=== PATIENT | male | born 1950 | race Caucasian/White ===

== ENCOUNTER 2019-10-09 06:34 | Outpatient (CLI) | payer MEDICARE, SELFPAY ==
[2019-10-09 07:56] LABS: Add Urine Microscopic? YES; Appearance Urine Clear (Clear); Bacteria Urine Trace /hpf; Bilirubin Urine Negative (Negative); Blood Urine 1+ (Negative); Color Urine Yellow (Yellow); Glucose Urine UA Negative (Negative); Ketones Urine Negative (Negative); Leukocyte Esterase Ur Trace LEU/UL (NEGATIVE); Mucus Urine Rare /lpf; Nitrate Urine Negative (Negative); Protein Urine Negative (Negative); RBC Urine 0-2 /hpf (0-2); Specific Grav Ur 1.017 (1.001-1.035); Urobilinogen Urine Negative mg/dL (<2.0)
[2019-10-09 08:06] LABS: Alanine Aminotransferase 15 U/L (4-50); Albumin Level 4.2 g/dL (3.5-5.1); Alkaline Phosphatase 133 U/L (38-126); Aspartate Amino Transferase 21 U/L (17-59); Bilirubin,Total 0.8 mg/dL (0.2-1.3); Blood Urea Nitrogen 15 mg/dL (9-20); Calcium 8.8 mg/dL (8.4-10.2); Carbon Dioxide 26 mmol/L (22-30); Chloride 105 mmol/L (98-107); Cholesterol 142 mg/dL (0-200); Estimated Glomerular Filt Rate > 60; Glucose 112 mg/dL (75-110); HDL Direct 32 mg/dL; Potassium 4.8 mmol/L (3.4-5.0); Sodium 138 mmol/L (137-145); Triglycerides 98 mg/dL (<150)
[2019-10-09 08:13] LABS: CRP < 0.5 mg/dL (<1.0)
[2019-10-09 08:17] LABS: LDL Cholesterol Direct 94 mg/dL
[2019-10-09 08:35] LABS: Prostate Specific Antigen 0.7 ng/mL (< OR = 4.0)
[2019-10-09 09:04] LABS: Erythrocyte Sedimentation Rate 13 mm/hr (0-20)
[2019-10-09 15:55] LABS: Vitamin D 25 Hydroxy 52.2 ng/mL
== END 2019-10-09 06:35 | disposition home or self-care (01) ==
PROVIDERS: PCP Family Medicine; Visit Provider Physician Assistant
DX: E78.00 Pure hypercholesterolemia, unspecified (principal); I10 Essential (primary) hypertension; I25.10 Atherosclerotic heart disease of native coronary artery without angina pectoris; R97.20 Elevated prostate specific antigen [PSA]; M05.79 Rheumatoid arthritis with rheumatoid factor of multiple sites without organ or systems involvement; E55.9 Vitamin D deficiency, unspecified
CPT/HCPCS: 36415; 80053; 80061; 81001; 82306; 84153; 85652; 86140

== ENCOUNTER 2020-04-06 13:40 | Outpatient (CLI) | payer MEDICARE, SELFPAY ==
[2020-04-06 15:02] LABS: Basophils Percent Auto 0.6 % (0.2-1.2); Eosinophils Absolute Auto 0.2 K/mm3 (0-0.3); Eosinophils Percent Auto 4.2 % (0-4.4); Hematocrit 37.2 % (42.0-52.0); Hemoglobin 11.6 g/dL (14.0-18.0); Immature Granulocyte Absolute 0.02 K/mm3 (0.00-0.031); Immature Granulocyte Percent A 0.4 % (0-0.5); Lymphocytes Absolute Auto 1.54 K/mm3 (0.9-3.2); Lymphocytes Percent Auto 29.4 % (18.3-44.2); Mean Corpuscular HGB Conc 31.2 g/dl (32-36); Mean Platelet Volume 9.4 fl (7.4-10.4); Monocytes Absolute Auto 0.4 K/mm3 (0.1-0.6); Monocytes Percent Auto 7.1 % (2.6-8.5); Neutrophils Absolute Auto 3.1 K/mm3 (1.3-6.7); Neutrophils Percent Auto 58.3 % (45.5-73.1); Platelet Count Result 308 k/mm3 (150-375); Red Cell Distribution Width 17.8 % (11.5-14.5); White Blood Count 5.2 K/mm3 (4.5-10.0)
[2020-04-06 15:12] LABS: Alanine Aminotransferase 17 U/L (4-50); Albumin Level 3.7 g/dL (3.5-5.1); Alkaline Phosphatase 123 U/L (38-126); Anion Gap 4 mmol/L (8-16); Aspartate Amino Transferase 25 U/L (17-59); Bilirubin,Total 0.7 mg/dL (0.2-1.3); Blood Urea Nitrogen 13 mg/dL (9-20); Calcium 8.5 mg/dL (8.4-10.2); Carbon Dioxide 29 mmol/L (22-30); Chloride 103 mmol/L (98-107); Estimated Glomerular Filt Rate > 60; Glucose 94 mg/dL (75-110); Potassium 4.5 mmol/L (3.4-5.0); Sodium 136 mmol/L (137-145)
[2020-04-06 16:46] LABS: Add Urine Microscopic? NO; Appearance Urine Clear (Clear); Bilirubin Urine Negative (Negative); Blood Urine Negative (Negative); Color Urine Yellow (Yellow); Glucose Urine UA Negative (Negative); Ketones Urine Negative (Negative); Leukocyte Esterase Ur Negative LEU/UL (NEGATIVE); Nitrate Urine Negative (Negative); Protein Urine Negative (Negative); Specific Grav Ur 1.019 (1.001-1.035); Urobilinogen Urine Negative mg/dL (<2.0)
== END 2020-04-06 13:41 | disposition home or self-care (01) ==
LOC: ANHLAB 13:51
PROVIDERS: PCP Family Medicine
DX: M05.79 Rheumatoid arthritis with rheumatoid factor of multiple sites without organ or systems involvement (principal); Z79.899 Other long term (current) drug therapy; Z68.32 Body mass index [BMI] 32.0-32.9, adult
CPT/HCPCS: 36415; 80053; 81003; 85025; 87086

== ENCOUNTER 2020-04-21 09:14 | Outpatient (CLI) | payer MEDICARE, SELFPAY ==
[2020-04-21 09:45] LABS: Cholesterol 154 mg/dL (0-200); HDL Direct 34 mg/dL; Triglycerides 103 mg/dL (<150)
[2020-04-21 09:56] LABS: LDL Cholesterol Direct 103 mg/dL
== END 2020-04-21 09:15 | disposition home or self-care (01) ==
PROVIDERS: PCP Family Medicine; Visit Provider Internal Medicine Cardiovascular Disease
DX: E78.2 Mixed hyperlipidemia (principal)
CPT/HCPCS: 36415; 80061

== ENCOUNTER 2020-05-07 06:42 | Outpatient (CLI) | payer MEDICARE, SELFPAY ==
[2020-05-07 07:33] LABS: Basophils Absolute Auto 0.1 K/mm3 (0.0-0.1); Eosinophils Absolute Auto 0.2 K/mm3 (0-0.3); Eosinophils Percent Auto 3.3 % (0-4.4); Hematocrit 34.8 % (42.0-52.0); Hemoglobin 11.2 g/dL (14.0-18.0); Immature Granulocyte Absolute 0.02 K/mm3 (0.00-0.031); Immature Granulocyte Percent A 0.3 % (0-0.5); Lymphocytes Absolute Auto 1.59 K/mm3 (0.9-3.2); Lymphocytes Percent Auto 25.9 % (18.3-44.2); Mean Corpuscular HGB Conc 32.2 g/dl (32-36); Mean Corpuscular Hemoglobin 29.3 pg (26-34); Mean Corpuscular Volume 91.1 fl (80-100); Mean Platelet Volume 9.4 fl (7.4-10.4); Monocytes Absolute Auto 0.7 K/mm3 (0.1-0.6); Monocytes Percent Auto 11.5 % (2.6-8.5); Neutrophils Absolute Auto 3.6 K/mm3 (1.3-6.7); Platelet Count Result 270 k/mm3 (150-375); Red Blood Count 3.82 M/mm3 (4.6-6.20); Red Cell Distribution Width 17.2 % (11.5-14.5); White Blood Count 6.2 K/mm3 (4.5-10.0)
[2020-05-07 08:07] LABS: Iron 35 ug/dL (49-181)
[2020-05-07 08:17] LABS: Percent Iron Saturation 9 % (20-50)
== END 2020-05-07 06:43 | disposition home or self-care (01) ==
PROVIDERS: PCP Family Medicine; Visit Provider Family Medicine
DX: D64.9 Anemia, unspecified (principal); M05.9 Rheumatoid arthritis with rheumatoid factor, unspecified; G89.29 Other chronic pain; M25.552 Pain in left hip
CPT/HCPCS: 36415; 82728; 83540; 83550; 85025

== ENCOUNTER 2020-06-18 13:42 | Outpatient (CLI) | payer MEDICARE, SELFPAY ==
[2020-06-18 14:11] LABS: Hematocrit 40.2 % (42.0-52.0); Hemoglobin 13.3 g/dL (14.0-18.0); Mean Corpuscular HGB Conc 33.1 g/dl (32-36); Mean Corpuscular Hemoglobin 31.2 pg (26-34); Mean Corpuscular Volume 94.4 fl (80-100); Mean Platelet Volume 9.2 fl (7.4-10.4); Platelet Count Result 233 k/mm3 (150-375); Red Blood Count 4.26 M/mm3 (4.6-6.20); Red Cell Distribution Width 16.9 % (11.5-14.5); White Blood Count 7.2 K/mm3 (4.5-10.0)
[2020-06-18 14:40] LABS: Iron 86 ug/dL (49-181)
[2020-06-18 14:50] LABS: Percent Iron Saturation 29 % (20-50)
== END 2020-06-18 13:43 | disposition home or self-care (01) ==
PROVIDERS: PCP Family Medicine; Visit Provider Family Medicine
DX: D64.9 Anemia, unspecified (principal)
CPT/HCPCS: 36415; 82728; 83540; 83550; 85027

== ENCOUNTER → 2020-08-01 01:28 | Outpatient (CLI) | payer MEDICARE, SELFPAY ==
[2020-08-02 14:53] LABS: SARS-CoV-2 RNA PCR Negative
== END ==
PROVIDERS: PCP Family Medicine; Visit Provider Internal Medicine Gastroenterology
DX: Z01.812 Encounter for preprocedural laboratory examination (principal); Z20.822 Contact with and (suspected) exposure to COVID-19
CPT/HCPCS: C9803; U0003; U0005

== ENCOUNTER 2020-08-05 01:12 | Day surgery (SDC) | payer MEDICARE, SELFPAY ==
[2020-08-05 06:18] VITALS: BP 143/69; PULSE 63; RESP 20; TEMP 36.3; O2SAT 95; BMI 29.5
[2020-08-05] MEDS: LACTATED RINGERS 1,000 ML 150 ML IV CONT (06:31)
[2020-08-05] MEDS: AMPICILLIN 2 GM/NS 100 ML 2 GM/100 ML BAG IVPB (06:32)
--- NOTE | 2020-08-05 06:58 | WPDANESEPPF ---
Anes - Initial Pre Proc Eval Procedure: Operation Date: 08/05/20 07:30 Proposed Procedures p Colonoscopy - Veto Davis MD Date/Time: 08/05/20 06:58 Surgeon: Veto Davis MD Pre Op Diagnosis: positive cologuard Patient Data Age: 70 Gender: M Height: 1.78 m Weight: 93.4 kg Last Vital Signs Temp 36.3 C L 08/05/20 06:18 Pulse 63 08/05/20 06:18 Resp 20 08/05/20 06:18 BP 143/69 H 08/05/20 06:18 Pulse Ox 95 08/05/20 06:18 Allergies Allergy/AdvReac Type Severity Reaction Status Date / Time No Known Allergies Allergy Verified 08/05/20 06:16 Home Medications Medication Instructions Recorded Confirmed Type atorvastatin 80 mg tablet 80 mg PO DAILY 03/14/19 07/27/20 History carvedilol 12.5 mg tablet 12.5 mg PO Q12H 03/14/19 07/27/20 History folic acid 1 mg tablet 1 mg PO DAILY 03/14/19 07/27/20 History lisinopril 2.5 mg tablet 2.5 mg PO DAILY 03/14/19 07/27/20 History methotrexate sodium 2.5 mg tablet 25 mg PO WEEKLY 03/14/19 07/27/20 History fluticasone furoate 100 1 inhalation INHALATION DAILY #60 05/22/19 07/27/20 Rx mcg-vilanterol 25 mcg/dose each inhalation powder umeclidinium 62.5 mcg/actuation 1 inhalation INHALATION DAILY #30 05/22/19 07/27/20 Rx blister powder for inhalation each aspirin 81 mg tablet,delayed 81 mg PO DAILY 09/19/19 07/27/20 History release ferrous sulfate 325 mg (65 mg 325 mg PO BID #60 tablet 05/07/20 07/27/20 Rx iron) tablet ezetimibe 10 mg tablet 10 mg PO DAILY tablet 06/15/20 07/27/20 History tamsulosin 0.4 mg capsule 0.4 mg PO DAILY #90 cap 06/18/20 07/27/20 Rx omeprazole 40 mg capsule,delayed 40 mg PO DAILY #90 cap 06/25/20 07/27/20 Rx release clopidogrel 75 mg PO DAILY 07/27/20 07/27/20 History gabapentin 300 mg PO TID 07/27/20 07/27/20 History sod picosulf 10 mg-magnes 3.5 160 ml PO BID #160 ml 08/04/20 Rx gram-citric 12 gram/160 mL oral solution Patient hx anesthesia problems: none Family hx anesthesia problems: none PMFSH Past Medical History Medical History (Updated 08/04/20 @ 12:48 by Jose Manuel Chahal DO) CAD (coronary artery disease) COPD (chronic obstructive pulmonary disease) HTN (hypertension) Hypertension with heart disease [place] (myocardial infarction) Pure hypercholesterolemia Rheumatoid arthritis with positive rheumatoid factor Surgical History Surgical History (Updated 08/04/20 @ 12:48 by Jose Manuel Chahal DO) H/O cardiac catheterization History of hip replacement Hx of CABG x2, 2017 Social History Social History (Updated 06/18/20 @ 08:48 by Donna Ramirez MA) Smoking packs per day: 2.5 Smoking cigarettes per day: 50.0 Years smoked: 53 Smoking pack-years: 132.50 Smoking status: Former smoker Tobacco type: cigarettes Second hand tobacco smoke exposure: Yes Smoking end date: 10/27/18 Alcohol intake: current Drinks per week: 10 Substance use: never Substance use type: does not use Gender identity (if verbalized by the patient): Male Anes - Eval Final PreProcedure Day of Procedure 08/05/20 06:58 Patient weight: overweight Heart: regular rate and rhythm Lungs: clear to auscultation and normal air movement Airway: Mallampati scale class II Neurological: alert and oriented Last oral intake: >/= 8 hours ASA classification: III Emergent: no Anesthetic plan: proceed Anesthesia type and monitoring: general GIVS and standard monitoring Informed Consent: The patient's anesthetic plan and its attendant risks and benefits were discussed with the patient/family/POA. Questions were solicited and answers provided to the satisfaction of the patient/family/POA.
--- NOTE | 2020-08-05 08:01 | WPDGICN ---
Assessment and Plan Assessment and plan (1) Positive colorectal cancer screening using Cologuard test: Code(s): R19.5 - Other fecal abnormalities Status: Acute Assessment and Plan: Patient with recent positive screening cologuard test. Plan is for colonoscopy. Follow-up will be based on findings. (2) CAD (coronary artery disease): Code(s): I25.10 - Atherosclerotic heart disease of [place] coronary artery without angina pectoris Status: Acute GI Consult Note Consult date/time: 08/05/20 08:01 HPI: Nba Hyde is a 70 year old male Presents for evaluation of positive screening cologuard test. patient states that his weight appetite bowel movements are normal. He denies abdominal pain. He has had no bleeding. Colonoscopy will be performed. Patient's last colonoscopy was in 2010. [place] to be unremarkable. Has a history of a gastric ulcer in 2013. Family history noncontributory. Patient reports history of atherosclerotic heart disease. He has congestive heart failure that is stable. History of hip replacement. And rheumatoid arthritis. [facility] Past Medical History Medical History (Updated 08/05/20 @ 08:04 by Veto Davis MD) CAD (coronary artery disease) COPD (chronic obstructive pulmonary disease) HTN (hypertension) Hypertension with heart disease [place] (myocardial infarction) Pure hypercholesterolemia Rheumatoid arthritis with positive rheumatoid factor Surgical History Surgical History (Updated 08/04/20 @ 12:48 by Jose Manuel Chahal DO) H/O cardiac catheterization History of hip replacement Hx of CABG x2, 2017 Social History Social History (Updated 06/18/20 @ 08:48 by Donna Ramirez MA) Smoking packs per day: 2.5 Smoking cigarettes per day: 50.0 Years smoked: 53 Smoking pack-years: 132.50 Smoking status: Former smoker Tobacco type: cigarettes Second hand tobacco smoke exposure: Yes Smoking end date: 10/27/18 Alcohol intake: current Drinks per week: 10 Substance use: never Substance use type: does not use Gender identity (if verbalized by the patient): Male Meds Home Medications and Allergies Home Medications Medication Instructions Recorded Confirmed Type atorvastatin 80 mg tablet 80 mg PO DAILY 03/14/19 07/27/20 History carvedilol 12.5 mg tablet 12.5 mg PO Q12H 03/14/19 07/27/20 History folic acid 1 mg tablet 1 mg PO DAILY 03/14/19 07/27/20 History lisinopril 2.5 mg tablet 2.5 mg PO DAILY 03/14/19 07/27/20 History methotrexate sodium 2.5 mg tablet 25 mg PO WEEKLY 03/14/19 07/27/20 History fluticasone furoate 100 1 inhalation INHALATION DAILY #60 05/22/19 07/27/20 Rx mcg-vilanterol 25 mcg/dose each inhalation powder umeclidinium 62.5 mcg/actuation 1 inhalation INHALATION DAILY #30 05/22/19 07/27/20 Rx blister powder for inhalation each aspirin 81 mg tablet,delayed 81 mg PO DAILY 09/19/19 07/27/20 History release ferrous sulfate 325 mg (65 mg 325 mg PO BID #60 tablet 05/07/20 07/27/20 Rx iron) tablet ezetimibe 10 mg tablet 10 mg PO DAILY tablet 06/15/20 07/27/20 History tamsulosin 0.4 mg capsule 0.4 mg PO DAILY #90 cap 06/18/20 07/27/20 Rx omeprazole 40 mg capsule,delayed 40 mg PO DAILY #90 cap 06/25/20 07/27/20 Rx release clopidogrel 75 mg PO DAILY 07/27/20 07/27/20 History gabapentin 300 mg PO TID 07/27/20 07/27/20 History sod picosulf 10 mg-magnes 3.5 160 ml PO BID #160 ml 08/04/20 Rx gram-citric 12 gram/160 mL oral solution Allergies Allergy/AdvReac Type Severity Reaction Status Date / Time No Known Allergies Allergy Verified 08/05/20 06:16 Vital Signs Vital Signs - 24 hr 08/05/20 06:18 Temperature 97.3 F L Pulse Rate 63 Respiratory Rate 20 Blood Pressure 143/69 H Pulse Oximetry 95 Exam Narrative: Exam Narrative: Physical exam reveals patient to be alert. Vital signs stable. HEENT exam is unremarkable. Lungs are clear to auscultation and percussion. Hea
[2020-08-05 08:02] VITALS: BP 117/74; PULSE 54; RESP 12; O2SAT 97
[2020-08-05 08:12] VITALS: BP 132/77; PULSE 54; RESP 12; O2SAT 94
[2020-08-05 08:22] VITALS: BP 157/81; PULSE 55; RESP 20; O2SAT 98
== END 2020-08-05 08:39 | disposition home or self-care (01) ==
PROVIDERS: PCP Family Medicine; Visit Provider Internal Medicine Gastroenterology
PROC: 0DJD8ZZ Inspection of Lower Intestinal Tract, Via Natural or Artificial Opening Endoscopic (ICD-10-PCS; CPT 45378; principal; 2020-08-05 07:30)
DX: R19.5 Other fecal abnormalities (principal); D12.5 Benign neoplasm of sigmoid colon; K63.5 Polyp of colon; K62.1 Rectal polyp; K64.8 Other hemorrhoids; I25.10 Atherosclerotic heart disease of native coronary artery without angina pectoris; I11.0 Hypertensive heart disease with heart failure; I50.9 Heart failure, unspecified; M06.9 Rheumatoid arthritis, unspecified; J44.9 Chronic obstructive pulmonary disease, unspecified; I25.2 Old myocardial infarction; E78.00 Pure hypercholesterolemia, unspecified; Z87.11 Personal history of peptic ulcer disease; Z95.1 Presence of aortocoronary bypass graft; Z87.891 Personal history of nicotine dependence; Z79.82 Long term (current) use of aspirin; Z79.02 Long term (current) use of antithrombotics/antiplatelets
CPT/HCPCS: 45385; 88305; J0290; J2704; J7120

== ENCOUNTER 2020-08-10 14:46 | Outpatient (RCR) | payer MEDICARE, SELFPAY ==
[2020-08-10 16:04] LABS: Basophils Percent Auto 0.5 % (0.2-1.2); Eosinophils Absolute Auto 0.2 K/mm3 (0-0.3); Eosinophils Percent Auto 3.5 % (0-4.4); Hematocrit 40.1 % (42.0-52.0); Hemoglobin 13.4 g/dL (14.0-18.0); Immature Granulocyte Absolute 0.02 K/mm3 (0.00-0.031); Immature Granulocyte Percent A 0.3 % (0-0.5); Lymphocytes Absolute Auto 1.96 K/mm3 (0.9-3.2); Lymphocytes Percent Auto 30.2 % (18.3-44.2); Mean Corpuscular HGB Conc 33.4 g/dl (32-36); Mean Corpuscular Hemoglobin 32.1 pg (26-34); Mean Corpuscular Volume 95.9 fl (80-100); Mean Platelet Volume 9.5 fl (7.4-10.4); Monocytes Absolute Auto 0.6 K/mm3 (0.1-0.6); Monocytes Percent Auto 8.8 % (2.6-8.5); Neutrophils Absolute Auto 3.7 K/mm3 (1.3-6.7); Neutrophils Percent Auto 56.7 % (45.5-73.1); Platelet Count Result 199 k/mm3 (150-375); Red Blood Count 4.18 M/mm3 (4.6-6.20); Red Cell Distribution Width 17.1 % (11.5-14.5); White Blood Count 6.5 K/mm3 (4.5-10.0)
[2020-08-10 16:07] LABS: Add Urine Microscopic? YES; Appearance Urine Clear (Clear); Bilirubin Urine Negative (Negative); Blood Urine 1+ (Negative); Color Urine Straw (Yellow); Glucose Urine UA Negative (Negative); Ketones Urine Negative (Negative); Leukocyte Esterase Ur Negative LEU/UL (Negative); Mucus Urine Rare /lpf; Nitrate Urine Negative (Negative); Protein Urine Negative (Negative); Urobilinogen Urine Negative mg/dL (<2.0); WBC Urine 0-3 /hpf
[2020-08-10 16:15] LABS: Alanine Aminotransferase 18 U/L (4-50); Albumin Level 3.9 g/dL (3.5-5.1); Alkaline Phosphatase 117 U/L (38-126); Anion Gap 4 mmol/L (8-16); Aspartate Amino Transferase 24 U/L (17-59); Bilirubin,Total 0.5 mg/dL (0.2-1.3); Blood Urea Nitrogen 15 mg/dL (9-20); Calcium 8.8 mg/dL (8.4-10.2); Carbon Dioxide 28 mmol/L (22-30); Chloride 105 mmol/L (98-107); Estimated Glomerular Filt Rate > 60; Glucose 88 mg/dL (75-110); Potassium 4.1 mmol/L (3.4-5.0); Sodium 137 mmol/L (137-145)
== END 2020-11-08 23:59 | disposition home or self-care (01) ==
LOC: ANHLAB 14:46
PROVIDERS: PCP Family Medicine
DX: Z51.81 Encounter for therapeutic drug level monitoring (principal); M05.79 Rheumatoid arthritis with rheumatoid factor of multiple sites without organ or systems involvement; Z79.899 Other long term (current) drug therapy
CPT/HCPCS: 36415; 80053; 81001; 85025

== ENCOUNTER → 2020-09-14 15:35 | Outpatient (REF) | payer MEDICARE, SELFPAY | LOC: ANHLAB 15:35 | PROVIDERS: PCP Family Medicine; Visit Provider Nurse Practitioner | DX: D03.39 Melanoma in situ of other parts of face (principal) | CPT/HCPCS: 88305; 88342 ==

== ENCOUNTER → 2020-10-12 14:54 | Outpatient (REF) | payer MEDICARE, SELFPAY | LOC: ANHLAB 14:54 | PROVIDERS: PCP Family Medicine; Visit Provider Surgery Plastic and Reconstructive Surgery | DX: D03.39 Melanoma in situ of other parts of face (principal) | CPT/HCPCS: 88305; 88342 ==

== ENCOUNTER 2020-12-24 11:43 | Outpatient (CLI) | payer MEDICARE, SELFPAY ==
[2020-12-24 12:20] LABS: Basophils Absolute Auto 0.1 K/mm3 (0.0-0.1); Basophils Percent Auto 0.7 % (0.2-1.2); Eosinophils Absolute Auto 0.2 K/mm3 (0-0.3); Eosinophils Percent Auto 2.8 % (0-4.4); Hematocrit 38.7 % (42.0-52.0); Hemoglobin 13.2 g/dL (14.0-18.0); Immature Granulocyte Absolute 0.02 K/mm3 (0.00-0.031); Immature Granulocyte Percent A 0.3 % (0-0.5); Lymphocytes Absolute Auto 1.83 K/mm3 (0.9-3.2); Lymphocytes Percent Auto 27.3 % (18.3-44.2); Mean Corpuscular HGB Conc 34.1 g/dl (32-36); Mean Corpuscular Hemoglobin 34.7 pg (26-34); Mean Corpuscular Volume 101.8 fl (80-100); Mean Platelet Volume 9.4 fl (7.4-10.4); Monocytes Absolute Auto 0.6 K/mm3 (0.1-0.6); Monocytes Percent Auto 8.6 % (2.6-8.5); Neutrophils Percent Auto 60.3 % (45.5-73.1); Platelet Count Result 192 k/mm3 (150-375); Red Cell Distribution Width 13.6 % (11.5-14.5); White Blood Count 6.7 K/mm3 (4.5-10.0)
[2020-12-24 12:29] LABS: Add Urine Microscopic? YES; Appearance Urine Clear (Clear); Bilirubin Urine Negative (Negative); Blood Urine 1+ (Negative); Color Urine Yellow (Yellow); Glucose Urine UA Negative (Negative); Ketones Urine Negative (Negative); Leukocyte Esterase Ur Trace LEU/UL (Negative); Mucus Urine Rare /lpf; Nitrate Urine Negative (Negative); Protein Urine Negative (Negative); RBC Urine 0-2 /hpf (0-2); Specific Grav Ur 1.015 (1.001-1.035); Urobilinogen Urine Negative mg/dL (<2.0); WBC Urine 0-3 /hpf
[2020-12-24 12:35] LABS: Alanine Aminotransferase 18 U/L (4-50); Alkaline Phosphatase 130 U/L (38-126); Anion Gap 8 mmol/L (8-16); Aspartate Amino Transferase 21 U/L (17-59); Bilirubin,Total 0.6 mg/dL (0.2-1.3); Blood Urea Nitrogen 14 mg/dL (9-20); Calcium 8.5 mg/dL (8.4-10.2); Carbon Dioxide 25 mmol/L (22-30); Chloride 105 mmol/L (98-107); Estimated Glomerular Filt Rate > 60; Glucose 98 mg/dL (65-110); Potassium 4.2 mmol/L (3.4-5.0); Sodium 138 mmol/L (137-145)
== END 2020-12-24 11:44 | disposition home or self-care (01) ==
LOC: ANHLAB 11:48
PROVIDERS: PCP Family Medicine; Visit Provider Internal Medicine
DX: C43.31 Malignant melanoma of nose (principal); Z51.81 Encounter for therapeutic drug level monitoring; Z79.899 Other long term (current) drug therapy; M05.79 Rheumatoid arthritis with rheumatoid factor of multiple sites without organ or systems involvement
CPT/HCPCS: 36415; 80053; 81001; 85025

== ENCOUNTER 2021-03-04 14:13 | Outpatient (CLI) | payer MEDICARE, SELFPAY ==
[2021-03-04 14:54] LABS: Basophils Percent Auto 0.6 % (0.2-1.2); Eosinophils Absolute Auto 0.3 K/mm3 (0-0.3); Eosinophils Percent Auto 3.9 % (0-4.4); Hematocrit 40.2 % (42.0-52.0); Hemoglobin 13.8 g/dL (14.0-18.0); Immature Granulocyte Absolute 0.02 K/mm3 (0.00-0.031); Immature Granulocyte Percent A 0.3 % (0-0.5); Lymphocytes Absolute Auto 1.73 K/mm3 (0.9-3.2); Lymphocytes Percent Auto 26.2 % (18.3-44.2); Mean Corpuscular HGB Conc 34.3 g/dl (32-36); Mean Corpuscular Hemoglobin 34.5 pg (26-34); Mean Corpuscular Volume 100.5 fl (80-100); Mean Platelet Volume 9.5 fl (7.4-10.4); Monocytes Absolute Auto 0.6 K/mm3 (0.1-0.6); Monocytes Percent Auto 9.2 % (2.6-8.5); Neutrophils Absolute Auto 3.9 K/mm3 (1.3-6.7); Neutrophils Percent Auto 59.8 % (45.5-73.1); Platelet Count Result 195 k/mm3 (150-375); White Blood Count 6.6 K/mm3 (4.5-10.0)
[2021-03-04 15:22] LABS: Alanine Aminotransferase 20 U/L (4-50); Albumin Level 3.9 g/dL (3.5-5.1); Alkaline Phosphatase 124 U/L (38-126); Anion Gap 8 mmol/L (8-16); Aspartate Amino Transferase 23 U/L (17-59); Bilirubin,Total 0.5 mg/dL (0.2-1.3); Blood Urea Nitrogen 12 mg/dL (9-20); Calcium 8.4 mg/dL (8.4-10.2); Carbon Dioxide 24 mmol/L (22-30); Chloride 103 mmol/L (98-107); Estimated Glomerular Filt Rate > 60; Glucose 113 mg/dL (65-110); Potassium 4.1 mmol/L (3.4-5.0); Sodium 135 mmol/L (137-145)
[2021-03-04 17:03] LABS: Iron 76 ug/dL (49-181)
[2021-03-04 17:12] LABS: Percent Iron Saturation 30 % (20-50)
== END 2021-03-04 14:14 | disposition home or self-care (01) ==
PROVIDERS: PCP Family Medicine; Visit Provider Family Medicine
DX: M05.9 Rheumatoid arthritis with rheumatoid factor, unspecified (principal); I10 Essential (primary) hypertension; D50.9 Iron deficiency anemia, unspecified; G89.29 Other chronic pain; M25.552 Pain in left hip
CPT/HCPCS: 36415; 80053; 82728; 83540; 83550; 85025

== ENCOUNTER → 2021-03-29 15:07 | Outpatient (REF) | payer MEDICARE, SELFPAY | LOC: ANHLAB 15:07 | PROVIDERS: PCP Family Medicine; Visit Provider Surgery Plastic and Reconstructive Surgery | DX: D03.39 Melanoma in situ of other parts of face (principal); L90.5 Scar conditions and fibrosis of skin | CPT/HCPCS: 88305 ==

== ENCOUNTER → 2021-06-21 13:16 | Outpatient (REF) | payer MEDICARE, SELFPAY | LOC: ANHLAB 13:16 | PROVIDERS: PCP Family Medicine; Visit Provider Nurse Practitioner | DX: L82.1 Other seborrheic keratosis (principal) | CPT/HCPCS: 88305 ==

== ENCOUNTER 2021-09-29 06:37 | Outpatient (CLI) | payer MEDICARE, SELFPAY ==
[2021-09-29 08:38] LABS: Basophils Absolute Auto 0.1 K/mm3 (0.0-0.1); Basophils Percent Auto 0.7 % (0.2-1.2); Eosinophils Absolute Auto 0.2 K/mm3 (0-0.3); Eosinophils Percent Auto 3.5 % (0-4.4); Hematocrit 40.1 % (42.0-52.0); Hemoglobin 13.3 g/dL (14.0-18.0); Immature Granulocyte Absolute 0.02 K/mm3 (0.00-0.031); Immature Granulocyte Percent A 0.3 % (0-0.5); Lymphocytes Absolute Auto 1.73 K/mm3 (0.9-3.2); Mean Corpuscular HGB Conc 33.2 g/dl (32-36); Mean Corpuscular Hemoglobin 33.1 pg (26-34); Mean Corpuscular Volume 99.8 fl (80-100); Mean Platelet Volume 9.7 fl (7.4-10.4); Monocytes Absolute Auto 0.5 K/mm3 (0.1-0.6); Monocytes Percent Auto 7.5 % (2.6-8.5); Neutrophils Absolute Auto 4.4 K/mm3 (1.3-6.7); Platelet Count Result 202 k/mm3 (150-375); Red Blood Count 4.02 M/mm3 (4.6-6.20); Red Cell Distribution Width 13.8 % (11.5-14.5); White Blood Count 6.9 K/mm3 (4.5-10.0)
[2021-09-29 08:41] LABS: Appearance Urine Clear (Clear); Bilirubin Urine Negative (Negative); Blood Urine Trace-lysed (Negative); Color Urine Yellow (Yellow); Glucose Urine UA Negative (Negative); Ketones Urine Negative (Negative); Leukocyte Esterase Ur Negative LEU/UL (NEGATIVE); Nitrate Urine Negative (Negative); Protein Urine Negative (Negative); Specific Grav Ur 1.025 (1.001-1.035); pH Urine 5.5 (5.0-9.0)
[2021-09-29 08:52] LABS: Mucus Urine Rare /lpf; RBC Urine 0-2 /hpf (0-2); WBC Urine 0-3 /hpf (0-3)
[2021-09-29 08:53] LABS: Alanine Aminotransferase 20 U/L (6-50); Albumin Level 3.7 g/dL (3.5-5.1); Alkaline Phosphatase 121 U/L (38-126); Anion Gap 6 mmol/L (8-16); Aspartate Amino Transferase 21 U/L (17-59); Blood Urea Nitrogen 13 mg/dL (9-20); Calcium 8.1 mg/dL (8.4-10.2); Carbon Dioxide 24 mmol/L (22-30); Chloride 106 mmol/L (98-107); Cholesterol 112 mg/dL (0-200); Estimated Glomerular Filt Rate > 60; Glucose 103 mg/dL (65-110); HDL Direct 31 mg/dL; Potassium 4.3 mmol/L (3.4-5.0); Sodium 136 mmol/L (137-145); Triglycerides 62 mg/dL (<150)
[2021-09-29 08:56] LABS: Add Urine Microscopic? YES
[2021-09-29 09:01] LABS: LDL Cholesterol Direct 63 mg/dL
[2021-09-29 09:21] LABS: Prostate Specific Antigen 0.6 ng/mL (< OR = 4.0)
== END 2021-09-29 06:38 | disposition home or self-care (01) ==
PROVIDERS: PCP Family Medicine; Visit Provider Nurse Practitioner Family
DX: M05.79 Rheumatoid arthritis with rheumatoid factor of multiple sites without organ or systems involvement (principal); Z79.899 Other long term (current) drug therapy; C43.31 Malignant melanoma of nose; M65.30 Trigger finger, unspecified finger; E78.00 Pure hypercholesterolemia, unspecified; D64.9 Anemia, unspecified; Z12.5 Encounter for screening for malignant neoplasm of prostate; E11.9 Type 2 diabetes mellitus without complications; E78.2 Mixed hyperlipidemia
CPT/HCPCS: 36415; 80053; 80061; 81001; 84153; 84443; 85025; 87077; 87086; 87186; G0103

== ENCOUNTER 2022-01-19 13:40 | Outpatient (CLI) | payer MEDICARE, SELFPAY ==
[2022-01-19 14:04] LABS: Basophils Percent Auto 0.6 % (0.2-1.2); Eosinophils Absolute Auto 0.1 K/mm3 (0-0.3); Eosinophils Percent Auto 2.1 % (0-4.4); Hematocrit 41.5 % (42.0-52.0); Immature Granulocyte Absolute 0.03 K/mm3 (0.00-0.031); Immature Granulocyte Percent A 0.5 % (0-0.5); Lymphocytes Absolute Auto 1.49 K/mm3 (0.9-3.2); Lymphocytes Percent Auto 22.9 % (18.3-44.2); Mean Corpuscular HGB Conc 33.7 g/dl (32-36); Mean Corpuscular Hemoglobin 34.1 pg (26-34); Mean Corpuscular Volume 101.2 fl (80-100); Mean Platelet Volume 8.9 fl (7.4-10.4); Monocytes Absolute Auto 0.6 K/mm3 (0.1-0.6); Monocytes Percent Auto 8.7 % (2.6-8.5); Neutrophils Absolute Auto 4.3 K/mm3 (1.3-6.7); Neutrophils Percent Auto 65.2 % (45.5-73.1); Platelet Count Result 190 k/mm3 (150-375); White Blood Count 6.5 K/mm3 (4.5-10.0)
[2022-01-19 14:09] LABS: Add Urine Microscopic? YES; Appearance Urine Cloudy (Clear); Bilirubin Urine Negative (Negative); Blood Urine 2+ (Negative); Color Urine Yellow (Yellow); Glucose Urine UA Negative (Negative); Ketones Urine Negative (Negative); Leukocyte Esterase Ur 2+ LEU/UL (Negative); Mucus Urine Moderate /lpf; Nitrate Urine Negative (Negative); Protein Urine Negative (Negative); Specific Grav Ur 1.025 (1.001-1.035); Squamous Epithelial Cell Urine Rare /hpf (Few)
[2022-01-19 14:15] LABS: Alanine Aminotransferase 26 U/L (6-50); Alkaline Phosphatase 102 U/L (38-126); Anion Gap 13 mmol/L (8-16); Aspartate Amino Transferase 26 U/L (17-59); Bilirubin,Total 0.8 mg/dL (0.2-1.3); Blood Urea Nitrogen 13 mg/dL (9-20); Calcium 8.2 mg/dL (8.4-10.2); Carbon Dioxide 26 mmol/L (22-30); Chloride 103 mmol/L (98-107); Estimated Glomerular Filt Rate > 60; Glucose 86 mg/dL (65-110); Sodium 142 mmol/L (137-145)
== END 2022-01-19 13:41 | disposition home or self-care (01) ==
PROVIDERS: PCP Family Medicine; Visit Provider Internal Medicine
DX: M05.79 Rheumatoid arthritis with rheumatoid factor of multiple sites without organ or systems involvement (principal); Z51.81 Encounter for therapeutic drug level monitoring; Z79.899 Other long term (current) drug therapy
CPT/HCPCS: 36415; 80053; 81001; 85025; 87086

== ENCOUNTER 2022-01-24 13:00 | Outpatient (NON) | payer MEDICARE, SELFPAY | END 2022-01-24 13:01 | disposition home or self-care (01) | PROVIDERS: PCP Family Medicine; Visit Provider Nurse Practitioner | DX: L81.4 Other melanin hyperpigmentation (principal); L57.8 Other skin changes due to chronic exposure to nonionizing radiation | CPT/HCPCS: 88305 ==

== ENCOUNTER 2022-03-08 07:00 | Outpatient (NON) | payer MEDICARE, SELFPAY | END 2022-03-08 07:01 | disposition home or self-care (01) | LOC: ANHLAB 03-10 13:48 | PROVIDERS: PCP Family Medicine; Visit Provider Nurse Practitioner | DX: C44.329 Squamous cell carcinoma of skin of other parts of face (principal) | CPT/HCPCS: 88305 ==

== ENCOUNTER 2022-04-08 15:55 | Outpatient (CLI) | payer MEDICARE, SELFPAY ==
--- NOTE | ~2022-04-08 | XR_ITS ---
EXAMINATION: XR ribs BI 3V w CXR 2V DATE: 04/08/2022 16:25 INDICATION: Pleurodynia. Right upper lateral right chest pain. TECHNIQUE: PA and lateral views of the chest and 3 views of the left and right ribs were obtained. COMPARISON: Chest CT dated 10/25/2018 FINDINGS: Lungs are clear with no focal airspace opacities, pulmonary edema, pleural effusion or pneumothorax. Cardiomediastinal silhouette is normal. Coronary artery stenting. IMPRESSION: 1. No rib fracture or acute cardiopulmonary disease. Reviewed, dictated and finalized at location A. [facility] [employer] [facility]
== END 2022-04-08 15:56 | disposition home or self-care (01) ==
PROVIDERS: PCP Family Medicine; Visit Provider Physician Assistant
DX: R07.81 Pleurodynia (principal); R05.9 Cough, unspecified
CPT/HCPCS: 71046; 71110

== ENCOUNTER 2022-04-18 13:01 | Outpatient (NON) | payer MEDICARE, SELFPAY | END 2022-04-18 13:02 | disposition home or self-care (01) | PROVIDERS: PCP Family Medicine; Visit Provider Nurse Practitioner | DX: C44.329 Squamous cell carcinoma of skin of other parts of face (principal) | CPT/HCPCS: 88305; 88331 ==

== ENCOUNTER 2022-07-14 13:47 | Outpatient (CLI) | payer MEDICARE, SELFPAY ==
[2022-07-14 14:14] LABS: Basophils Percent Auto 0.7 % (0.2-1.2); Eosinophils Absolute Auto 0.2 K/mm3 (0-0.3); Eosinophils Percent Auto 3.3 % (0-4.4); Hemoglobin 13.4 g/dL (14.0-18.0); Immature Granulocyte Absolute 0.02 K/mm3 (0.00-0.031); Immature Granulocyte Percent A 0.3 % (0-0.5); Lymphocytes Absolute Auto 1.53 K/mm3 (0.9-3.2); Lymphocytes Percent Auto 26.3 % (18.3-44.2); Mean Corpuscular HGB Conc 33.5 g/dl (32-36); Mean Corpuscular Hemoglobin 33.4 pg (26-34); Mean Corpuscular Volume 99.8 fl (80-100); Mean Platelet Volume 9.2 fl (7.4-10.4); Monocytes Absolute Auto 0.8 K/mm3 (0.1-0.6); Monocytes Percent Auto 13.4 % (2.6-8.5); Neutrophils Absolute Auto 3.3 K/mm3 (1.3-6.7); Platelet Count Result 176 k/mm3 (150-375); Red Blood Count 4.01 M/mm3 (4.6-6.20); Red Cell Distribution Width 14.4 % (11.5-14.5); White Blood Count 5.8 K/mm3 (4.5-10.0)
[2022-07-14 14:28] LABS: Appearance Urine Clear (Clear); Bacteria Urine None Seen /hpf; Bilirubin Urine 1+ (Negative); Color Urine Dark Yellow (Yellow); Glucose Urine UA Negative (Negative); Ketones Urine Negative (Negative); Leukocyte Esterase Ur Trace LEU/UL (Negative); Nitrate Urine Negative (Negative); Non Pathogenic Casts 0-2; Protein Urine Trace mg/dL (Negative); Specific Grav Ur 1.031 (1.001-1.035); Squamous Epithelial Cell Urine None seen /hpf (Few); WBC Urine 0-5 /hpf
[2022-07-14 14:52] LABS: Add Urine Microscopic? YES
[2022-07-14 14:58] LABS: Anion Gap 7 mmol/L (8-16); Bilirubin,Total 0.8 mg/dL (0.2-1.3); Blood Urea Nitrogen 13 mg/dL (9-20); Calcium 7.6 mg/dL (8.4-10.2); Carbon Dioxide 23 mmol/L (22-30); Chloride 104 mmol/L (98-107); Estimated Glomerular Filt Rate > 60; Glucose 93 mg/dL (65-110); Potassium 4.2 mmol/L (3.4-5.0); Sodium 134 mmol/L (137-145)
[2022-07-14 14:59] LABS: Alanine Aminotransferase 23 U/L (6-50); Albumin Level 3.7 g/dL (3.5-5.1); Alkaline Phosphatase 137 U/L (38-126); Aspartate Amino Transferase 25 U/L (17-59)
== END 2022-07-14 13:48 | disposition home or self-care (01) ==
LOC: ANHLAB 13:50
PROVIDERS: PCP Family Medicine; Visit Provider Internal Medicine
DX: Z51.81 Encounter for therapeutic drug level monitoring (principal); M05.79 Rheumatoid arthritis with rheumatoid factor of multiple sites without organ or systems involvement; Z79.899 Other long term (current) drug therapy
CPT/HCPCS: 36415; 80053; 81001; 85025

== ENCOUNTER 2022-08-03 14:49 | Emergency (ER) | payer MEDICARE, SELFPAY ==
--- NOTE | ~2022-08-03 | US_ITS ---
EXAMINATION: US venous doppler LE RT DATE: 08/03/2022 15:36 INDICATION: Right lower limb pain, swelling and erythema TECHNIQUE: Grayscale ultrasound images without and with compression and Doppler ultrasound images of the right lower extremity veins were obtained. COMPARISON: None. FINDINGS: The visualized portions of right common femoral vein, profunda (deep) femoral vein, femoral vein, pop liteal vein, peroneal trunk, posterior tibial veins, peroneal veins, gastrocnemius vein and greater s aphenous vein outflow are patent. 5.4 x 1.1 x 4.7 cm with complex mixed anechoic and very hypoechoic fluid collection with irregular margins in the subcutaneous fat at the medial right calf which withou t evident internal vascular flow on color Doppler or surrounding hyperemia IMPRESSION: 1. No deep venous thrombosis in the right lower limb. 2. 5.4 x 1.1 x 4.7 cm complex fluid collection with irregular margins in the subcutaneous fat at the medial right calf most likely representing a hematoma. Differential would include abscess in the appr opriate clinical setting. Reviewed, dictated and finalized at location A. IMPRESSION: 1. No deep venous thrombosis in the right lower limb. 2. 5.4 x 1.1 x 4.7 cm complex fluid collection with irregular margins in the jimenez bcutaneous fat at the medial right calf most likely representing a hematoma. Di fferential would include abscess in the appropriate clinical setting.
[2022-08-03 14:54] VITALS: BP 141/72; PULSE 74; RESP 18; TEMP 36.9; O2SAT 98
--- NOTE | 2022-08-03 15:12 | ED.LOWEXIN ---
HPI - Extremity Injury (Lower) General Chief Complaint: Extremity Injury, Lower Stated Complaint: knot on leg Time Seen by Provider: 08/03/22 14:56 History of Present Illness HPI Narrative: 72-year-old male history of hypertension, CAD status post stents, COPD, rheumatoid arthritis, chronic anemia presents to the emergency room for evaluation of right calf pain. Patient states yesterday he noticed a small erythematous area to his right calf. Woke up this morning with tenderness and swelling to his right calf, and bruising to his right heel. Denies any injury or trauma. Patient is anticoagulated. No history of PE or DVT. No history of long bone fractures. No history of cancer. Denies long periods of immobility. Related Data Home Medications Medication Instructions Recorded Confirmed atorvastatin 80 mg tablet (Lipitor) 80 mg PO DAILY 03/14/19 04/08/22 carvedilol 12.5 mg tablet (Coreg) 12.5 mg PO Q12H 03/14/19 04/08/22 folic acid 1 mg tablet 1 mg PO DAILY 03/14/19 04/08/22 lisinopril 2.5 mg tablet 2.5 mg PO DAILY 03/14/19 04/08/22 methotrexate sodium 2.5 mg tablet 25 mg PO WEEKLY 03/14/19 04/08/22 clopidogrel 75 mg tablet 75 mg PO DAILY 07/27/20 04/08/22 Allergies Allergy/AdvReac Type Severity Reaction Status Date / Time No Known Allergies Allergy Verified 04/08/22 15:23 Review of Systems Review of Systems: CONSTITUTIONAL: Denies fever, chills, or sweats. EYES: Denies visual changes, redness, or discharge. ENT: Denies rhinorrhea, congestion, sore throat, or otalgia. CARDIOVASCULAR: Denies chest pain, palpitations, or edema. RESPIRATORY: Denies cough or dyspnea. GASTROINTESTINAL: Denies abdominal pain, nausea, vomiting, or diarrhea. GENITOURINARY: Denies dysuria or hematuria. SKIN: Denies rash or itching. MUSCULOSKELETAL: Reports right calf pain NEUROLOGIC: Denies headache, numbness, dizziness, or weakness. PSYCHIATRIC: Denies anxiety or depression. [facility] Past Medical History Medical History CAD (coronary artery disease) COPD (chronic obstructive pulmonary disease) HTN (hypertension) Hypertension with heart disease [place] (myocardial infarction) Pure hypercholesterolemia Rheumatoid arthritis with positive rheumatoid factor Surgical History Surgical History H/O cardiac catheterization History of hip replacement Hx of CABG x2, 2017 Social History Social History Smoking packs per day: 2.5 Smoking cigarettes per day: 50.0 Years smoked: 53 Smoking pack-years: 132.50 Smoking status: Former smoker Tobacco type: cigarettes Second hand tobacco smoke exposure: Yes Smoking end date: 10/27/18 Alcohol intake: current Drinks per week: 8 Alcohol use details: occasional Substance use: never Substance use type: does not use Living arrangements: with friend(s) Occupation/Education: retired Gender identity (if verbalized by the patient): Male Sexual Orientation (if Verbalized by the Patient): Straight or Heterosexual Exam Narrative: GENERAL: Well-appearing, well-nourished, no physical limitations, and in no acute distress. HEAD: Normocephalic, atraumatic. EYES: Conjunctivae normal, PERRLA and EOMI. CHEST: Clear to auscultation. No respiratory distress. No wheezes rales or rhonchi. No tenderness. HEART: Regular rate and rhythm. No murmur heard. Normal peripheral pulses. EXTREMITIES: RLE: Area of induration, erythema and tenderness to right medial calf. Negative Homans' sign. Distal pulses are present. Ecchymosis noted to medial side of heel and medial ankle. No bony tenderness or abnormality. SKIN: Warm, dry, no rash. No noted wounds NEURO: No focal deficits. Alert and oriented x3. MAEW. CN's II-XI intact bilaterally, normal gait PSYCH: Cooperative. Normal mood and affect. Course Vital Signs Vital signs:
[2022-08-03 15:45] LABS: Basophils Percent Auto 0.5 % (0.2-1.2); Eosinophils Absolute Auto 0.2 K/mm3 (0-0.3); Hemoglobin 14.1 g/dL (14.0-18.0); Immature Granulocyte Absolute 0.01 K/mm3 (0.00-0.031); Immature Granulocyte Percent A 0.2 % (0-0.5); Lymphocytes Absolute Auto 1.47 K/mm3 (0.9-3.2); Lymphocytes Percent Auto 24.6 % (18.3-44.2); Mean Corpuscular HGB Conc 34.4 g/dl (32-36); Mean Corpuscular Hemoglobin 33.8 pg (26-34); Mean Corpuscular Volume 98.3 fl (80-100); Monocytes Absolute Auto 0.6 K/mm3 (0.1-0.6); Monocytes Percent Auto 9.4 % (2.6-8.5); Neutrophils Absolute Auto 3.7 K/mm3 (1.3-6.7); Neutrophils Percent Auto 62.3 % (45.5-73.1); Platelet Count Result 190 k/mm3 (150-375); Red Blood Count 4.17 M/mm3 (4.6-6.20); Red Cell Distribution Width 14.1 % (11.5-14.5)
[2022-08-03 15:55] LABS: Alanine Aminotransferase 22 U/L (6-50); Albumin Level 4.1 g/dL (3.5-5.1); Alkaline Phosphatase 152 U/L (38-126); Anion Gap 6 mmol/L (8-16); Aspartate Amino Transferase 28 U/L (17-59); Bilirubin,Total 0.9 mg/dL (0.2-1.3); Blood Urea Nitrogen 13 mg/dL (9-20); Calcium 8.3 mg/dL (8.4-10.2); Carbon Dioxide 28 mmol/L (22-30); Chloride 102 mmol/L (98-107); Estimated Glomerular Filt Rate > 60; Glucose 88 mg/dL (65-110); Potassium 4.6 mmol/L (3.4-5.0); Sodium 136 mmol/L (137-145)
[2022-08-03 16:19] VITALS: BP 129/71; PULSE 67; RESP 18; O2SAT 97
== END 2022-08-03 16:20 | disposition home or self-care (01) ==
PROVIDERS: Emergency Provider Nurse Practitioner Family; PCP Family Medicine
DX: S80.11XA Contusion of right lower leg, initial encounter (principal); I25.10 Atherosclerotic heart disease of native coronary artery without angina pectoris; J44.9 Chronic obstructive pulmonary disease, unspecified; I25.2 Old myocardial infarction; I11.9 Hypertensive heart disease without heart failure; E78.00 Pure hypercholesterolemia, unspecified; D64.9 Anemia, unspecified; M05.9 Rheumatoid arthritis with rheumatoid factor, unspecified; Z95.1 Presence of aortocoronary bypass graft; Z96.649 Presence of unspecified artificial hip joint; Z87.891 Personal history of nicotine dependence; Z79.02 Long term (current) use of antithrombotics/antiplatelets; X58.XXXA Exposure to other specified factors, initial encounter
CPT/HCPCS: 36415; 80053; 85025; 93971; 99284

== ENCOUNTER 2022-10-31 12:58 | Outpatient (NON) | payer MEDICARE, SELFPAY | END 2022-10-31 12:59 | disposition home or self-care (01) | LOC: ANHLAB 11-02 13:01 | PROVIDERS: PCP Family Medicine; Visit Provider Nurse Practitioner | DX: C44.212 Basal cell carcinoma of skin of right ear and external auricular canal (principal) | CPT/HCPCS: 88305 ==

== ENCOUNTER 2022-11-14 11:37 | Outpatient (RCR) | payer MEDICARE, SELFPAY ==
[2022-11-14 13:03] LABS: Basophils Percent Auto 0.7 % (0.2-1.2); Eosinophils Absolute Auto 0.1 K/mm3 (0-0.3); Eosinophils Percent Auto 2.3 % (0-4.4); Hematocrit 41.1 % (42.0-52.0); Hemoglobin 13.7 g/dL (14.0-18.0); Immature Granulocyte Absolute 0.02 K/mm3 (0.00-0.031); Immature Granulocyte Percent A 0.3 % (0-0.5); Lymphocytes Absolute Auto 1.23 K/mm3 (0.9-3.2); Lymphocytes Percent Auto 20.5 % (18.3-44.2); Mean Corpuscular HGB Conc 33.3 g/dl (32-36); Mean Corpuscular Hemoglobin 33.4 pg (26-34); Mean Corpuscular Volume 100.2 fl (80-100); Monocytes Absolute Auto 0.6 K/mm3 (0.1-0.6); Monocytes Percent Auto 9.2 % (2.6-8.5); Platelet Count Result 179 k/mm3 (150-375); Red Cell Distribution Width 13.8 % (11.5-14.5)
[2022-11-14 13:09] LABS: Appearance Urine Clear (Clear); Bacteria Urine None Seen /hpf; Bilirubin Urine 1+ (Negative); Blood Urine 1+ (Negative); Color Urine Dark Yellow (Yellow); Glucose Urine UA Negative (Negative); Ketones Urine Trace mg/dL (Negative); Leukocyte Esterase Ur Trace LEU/UL (Negative); Nitrate Urine Negative (Negative); Non Pathogenic Casts 0-2; Protein Urine Negative (Negative); Specific Grav Ur 1.026 (1.001-1.035); Squamous Epithelial Cell Urine None seen /hpf (Few); WBC Urine 0-5 /hpf; pH Urine 5.5 (5.0-9.0)
[2022-11-14 13:13] LABS: Alanine Aminotransferase 21 U/L (6-50); Albumin Level 3.5 g/dL (3.5-5.1); Alkaline Phosphatase 101 U/L (38-126); Anion Gap 2 mmol/L (8-16); Aspartate Amino Transferase 24 U/L (17-59); Bilirubin,Total 0.8 mg/dL (0.2-1.3); Blood Urea Nitrogen 13 mg/dL (9-20); Calcium 8.4 mg/dL (8.4-10.2); Carbon Dioxide 30 mmol/L (22-30); Chloride 102 mmol/L (98-107); Estimated Glomerular Filt Rate > 60; Glucose 131 mg/dL (65-110); Sodium 134 mmol/L (137-145)
[2022-11-14 13:15] LABS: Add Urine Microscopic? YES
== END 2023-02-12 23:59 | disposition home or self-care (01) ==
LOC: ANHLAB 11:37
PROVIDERS: PCP Family Medicine
DX: Z51.81 Encounter for therapeutic drug level monitoring (principal); M05.79 Rheumatoid arthritis with rheumatoid factor of multiple sites without organ or systems involvement; Z79.899 Other long term (current) drug therapy
CPT/HCPCS: 36415; 80053; 81001; 85025; 88305; 88331

== ENCOUNTER 2022-11-14 14:10 | Outpatient (NON) | payer MEDICARE, SELFPAY | END 2022-11-14 14:11 | disposition home or self-care (01) | LOC: ANHLAB 14:10 | PROVIDERS: PCP Family Medicine; Visit Provider Nurse Practitioner | DX: C44.211 Basal cell carcinoma of skin of unspecified ear and external auricular canal (principal) | CPT/HCPCS: 88305; 88331 ==

== ENCOUNTER 2023-03-15 15:43 | Outpatient (CLI) | payer MEDICARE, SELFPAY ==
[2023-03-15 16:20] LABS: Hematocrit 41.4 % (42.0-52.0); Hemoglobin 13.8 g/dL (14.0-18.0); Mean Corpuscular HGB Conc 33.3 g/dl (32-36); Mean Corpuscular Hemoglobin 34.1 pg (26-34); Mean Corpuscular Volume 102.2 fl (80-100); Mean Platelet Volume 9.7 fl (7.4-10.4); Platelet Count Result 202 k/mm3 (150-375); Red Blood Count 4.05 M/mm3 (4.6-6.20); Red Cell Distribution Width 14.9 % (11.5-14.5); White Blood Count 7.7 K/mm3 (4.5-10.0)
[2023-03-15 16:28] LABS: Appearance Urine Clear (Clear); Bacteria Urine None Seen /hpf; Bilirubin Urine Negative (Negative); Blood Urine Trace (Negative); Color Urine Yellow (Yellow); Glucose Urine UA Negative (Negative); Ketones Urine Trace mg/dL (Negative); Leukocyte Esterase Ur Trace LEU/UL (NEGATIVE); Nitrate Urine Negative (Negative); Non Pathogenic Casts 0-2; Protein Urine Negative (Negative); Specific Grav Ur 1.019 (1.001-1.035); Squamous Epithelial Cell Urine None seen /hpf (Few); WBC Urine 0-5 /hpf (0-3)
[2023-03-15 16:34] LABS: Add Urine Microscopic? YES
[2023-03-15 16:50] LABS: Alanine Aminotransferase 22 U/L (6-50); Albumin Level 3.6 g/dL (3.5-5.1); Alkaline Phosphatase 130 U/L (38-126); Anion Gap 4 mmol/L (8-16); Aspartate Amino Transferase 26 U/L (17-59); Bilirubin,Total 0.6 mg/dL (0.2-1.3); Blood Urea Nitrogen 13 mg/dL (9-20); Calcium 8.3 mg/dL (8.4-10.2); Carbon Dioxide 29 mmol/L (22-30); Chloride 105 mmol/L (98-107); Cholesterol 98 mg/dL (0-200); Estimated Glomerular Filt Rate > 60; Glucose 77 mg/dL (65-110); HDL Direct 34 mg/dL; Sodium 138 mmol/L (137-145); Triglycerides 131 mg/dL (<150)
[2023-03-15 16:51] LABS: Influenza A QL RT-PCR Negative (Negative); Influenza B QL RT-PCR Negative (Negative); RSV RNA, RT-PCR Negative (Negative); SARS-CoV-2 RNA PCR Negative (Negative)
[2023-03-15 17:01] LABS: LDL Cholesterol Direct 56 mg/dL
[2023-03-15 17:20] LABS: Prostate Specific Antigen 1.3 ng/mL (< OR = 4.0)
== END 2023-03-15 15:44 | disposition home or self-care (01) ==
PROVIDERS: PCP Family Medicine; Visit Provider Family Medicine
DX: J18.9 Pneumonia, unspecified organism (principal); R05.9 Cough, unspecified; R06.00 Dyspnea, unspecified; E78.00 Pure hypercholesterolemia, unspecified; I10 Essential (primary) hypertension; I25.10 Atherosclerotic heart disease of native coronary artery without angina pectoris; R97.20 Elevated prostate specific antigen [PSA]; Z00.00 Encounter for general adult medical examination without abnormal findings; I25.2 Old myocardial infarction; M05.9 Rheumatoid arthritis with rheumatoid factor, unspecified
CPT/HCPCS: 36415; 80053; 80061; 81001; 84153; 84443; 85027; 87637

== ENCOUNTER 2023-03-30 14:18 | Outpatient (CLI) | payer MEDICARE, SELFPAY ==
[2023-03-30 20:02] LABS: Iron 121 ug/dL (49-181)
[2023-03-30 20:11] LABS: Percent Iron Saturation 72 % (20-50)
== END 2023-03-30 14:19 | disposition home or self-care (01) ==
LOC: ANHLAB 14:20
PROVIDERS: PCP Family Medicine; Visit Provider Family Medicine
DX: M25.552 Pain in left hip (principal); G89.29 Other chronic pain; D64.9 Anemia, unspecified
CPT/HCPCS: 36415; 82728; 83540; 83550

== ENCOUNTER 2023-08-28 16:19 | Outpatient (CLI) | payer MEDICARE, SELFPAY ==
[2023-08-28 17:57] LABS: Alanine Aminotransferase 19 U/L (6-50); Albumin Level 3.9 g/dL (3.5-5.1); Alkaline Phosphatase 126 U/L (38-126); Anion Gap 3 mmol/L (4-12); Aspartate Amino Transferase 25 U/L (17-59); Bilirubin,Total 0.7 mg/dL (0.2-1.3); Blood Urea Nitrogen 17 mg/dL (9-20); Calcium 8.6 mg/dL (8.4-10.2); Carbon Dioxide 29 mmol/L (22-30); Chloride 105 mmol/L (98-107); Estimated Glomerular Filt Rate > 60; Glucose 93 mg/dL (65-110); Potassium 4.2 mmol/L (3.4-5.0); Sodium 137 mmol/L (137-145)
== END 2023-08-28 16:20 | disposition home or self-care (01) ==
LOC: ANHLAB 16:22
PROVIDERS: PCP Family Medicine; Visit Provider Family Medicine
DX: I10 Essential (primary) hypertension (principal)
CPT/HCPCS: 36415; 80053

== ENCOUNTER 2023-10-18 15:45 | Outpatient (CLI) | payer MEDICARE, SELFPAY ==
[2023-10-18 16:15] LABS: Basophils Percent Auto 0.5 % (0.2-1.2); Eosinophils Absolute Auto 0.1 K/mm3 (0-0.3); Eosinophils Percent Auto 1.9 % (0-4.4); Hematocrit 39.4 % (42.0-52.0); Hemoglobin 13.4 g/dL (14.0-18.0); Immature Granulocyte Absolute 0.03 K/mm3 (0.00-0.031); Immature Granulocyte Percent A 0.4 % (0-0.5); Lymphocytes Absolute Auto 1.58 K/mm3 (0.9-3.2); Lymphocytes Percent Auto 21.3 % (18.3-44.2); Mean Corpuscular Hemoglobin 34.4 pg (26-34); Mean Corpuscular Volume 101.3 fl (80-100); Mean Platelet Volume 9.4 fl (7.4-10.4); Monocytes Absolute Auto 0.8 K/mm3 (0.1-0.6); Monocytes Percent Auto 10.1 % (2.6-8.5); Neutrophils Absolute Auto 4.9 K/mm3 (1.3-6.7); Neutrophils Percent Auto 65.8 % (45.5-73.1); Platelet Count Result 175 k/mm3 (150-375); Red Blood Count 3.89 M/mm3 (4.6-6.20); Red Cell Distribution Width 14.1 % (11.5-14.5); White Blood Count 7.4 K/mm3 (4.5-10.0)
[2023-10-18 16:21] LABS: Appearance Urine Clear (Clear); Bacteria Urine None Seen /hpf; Bilirubin Urine Negative (Negative); Blood Urine Trace (Negative); Color Urine Yellow (Yellow); Glucose Urine UA Negative (Negative); Ketones Urine Negative (Negative); Leukocyte Esterase Ur Negative LEU/UL (Negative); Nitrate Urine Negative (Negative); Non Pathogenic Casts 0-2; Protein Urine Negative (Negative); Specific Grav Ur 1.023 (1.001-1.035); Squamous Epithelial Cell Urine None Seen /hpf (Few); WBC Urine 0-5 /hpf (0-3)
[2023-10-18 16:23] LABS: Alanine Aminotransferase 22 U/L (6-50); Alkaline Phosphatase 115 U/L (38-126); Anion Gap 10 mmol/L (4-12); Aspartate Amino Transferase 27 U/L (17-59); Bilirubin,Total 0.6 mg/dL (0.2-1.3); Blood Urea Nitrogen 14 mg/dL (9-20); Calcium 8.4 mg/dL (8.4-10.2); Carbon Dioxide 24 mmol/L (22-30); Chloride 103 mmol/L (98-107); Estimated Glomerular Filt Rate > 60; Glucose 76 mg/dL (65-110); Potassium 4.4 mmol/L (3.4-5.0); Sodium 137 mmol/L (137-145)
[2023-10-18 16:25] LABS: Add Urine Microscopic? YES
== END 2023-10-18 15:46 | disposition home or self-care (01) ==
LOC: ANHLAB 15:51
PROVIDERS: PCP Family Medicine; Visit Provider Internal Medicine
DX: M05.79 Rheumatoid arthritis with rheumatoid factor of multiple sites without organ or systems involvement (principal); Z79.899 Other long term (current) drug therapy; Z51.81 Encounter for therapeutic drug level monitoring
CPT/HCPCS: 36415; 80053; 81001; 85025

== ENCOUNTER 2023-10-25 07:00 | Outpatient (CLI) | payer MEDICARE, SELFPAY ==
[2023-10-26 10:35] LABS: SARS-CoV-2 RNA PCR Positive (Negative)
== END 2023-10-26 09:42 | disposition home or self-care (01) ==
PROVIDERS: PCP Family Medicine; Visit Provider Physician Assistant Medical
DX: J02.9 Acute pharyngitis, unspecified (principal); Z20.822 Contact with and (suspected) exposure to COVID-19
CPT/HCPCS: 87635

== ENCOUNTER 2024-01-07 21:17 | Emergency (ER) | payer MEDICARE, SELFPAY ==
--- NOTE | ~2024-01-07 | XR_ITS ---
Portable chest x-ray Comparison: 04/08/2022 Clinical History: Hip fracture Findings: Lungs are clear, without focal consolidation or pleural effusion. Cardiomediastinal silho uette is stable. Bones and soft tissues are unremarkable. Impression: Clear lungs. Reviewed, dictated and finalized at location . Impression: Clear lungs.
--- NOTE | ~2024-01-07 | XR_ITS ---
AP view of the pelvis and AP and lateral views of the left hip Clinical history: Pain Findings: Left hip arthroplasty in place. There is an acute periprosthetic fracture of the proximal t hird of the femoral shaft, mildly displaced. Soft tissues are unremarkable. Impression: Acute periprosthetic fracture of the proximal third of the femoral shaft, mildly displaced. Underlying left hip arthroplasty hardware. Reviewed, dictated and finalized at location . Impression: Acute periprosthetic fracture of the proximal third of the femoral shaft, mildl y displaced. Underlying left hip arthroplasty hardware.
--- NOTE | ~2024-01-07 | XR_ITS ---
AP and lateral views of the left femur Clinical History: Pain Findings: Left hip arthroplasty is in place. There is an acute periprosthetic fracture the proximal h stephenie of the femoral shaft, mildly displaced. The distal femur otherwise is intact. Soft tissues are un remarkable. Impression: Acute periprosthetic fracture the proximal half of the femoral shaft, with mild displacement. Underlying left hip arthroplasty in place. Reviewed, dictated and finalized at location M. Impression: Acute periprosthetic fracture the proximal half of the femoral shaft, with mild displacement. Underlying left hip arthroplasty in place.
[2024-01-07 21:28] VITALS: BP 157/91; PULSE 52; RESP 16; O2SAT 100
--- NOTE | 2024-01-07 21:39 | PC.NURSE ---
Pt friend salma peters can be given pt health information, per pt verbalized approval. [phone].
--- NOTE | 2024-01-07 22:48 | ED.LOWEXIN ---
HPI - Extremity Injury (Lower) General Chief Complaint: Extremity Injury, Lower <Medina De La CruzFredi Perez APRN - Last Filed: 01/08/24 03:29> Stated Complaint: fall <Medina De La CruzFredi Perez APRN - Last Filed: 01/08/24 03:29> Time Seen by Provider: 01/07/24 21:38 <Medina Perez APRN - Last Filed: 01/08/24 03:29> Source: patient <Medina De La CruzFredi Perez APRN - Last Filed: 01/08/24 03:29> Mode of arrival: EMS <Medina DorothyFredi Perez APRN - Last Filed: 01/08/24 03:29> Limitations: intoxication <Medinayadira Perez APRN - Last Filed: 01/08/24 03:29> History of Present Illness HPI Narrative: Patient is a 73-year-old male who presents to the ER after a fall. He reports he has a history of bilateral hip replacement. Patient reports his left hip was replaced about 5-6 years ago and he has not had any problems then. This evening patient went out to the bar and had 6 or 7 beers. When he got home he was walking down the steps, missed one and fell. Patient reports he fell on his left hip and he is concerned that he dislocated it. He reports he is unable to move it or lifted up and down at this time. Patient reports he has extensive history including AAA, rheumatoid arthritis, bilateral hip replacements, COPD, and melanoma. He denies chest pain, shortness a breath, other signs of illness, numbness or tingling in his extremities. <Medinayadira Perez APRN - Last Filed: 01/08/24 03:29> Related Data Home Medications: Home Medications Medication Instructions Recorded Confirmed atorvastatin 80 mg tablet (Lipitor) 80 mg PO DAILY 03/14/19 08/28/23 folic acid 1 mg tablet 1 mg PO DAILY 03/14/19 08/28/23 lisinopril 2.5 mg tablet 2.5 mg PO DAILY 03/14/19 08/28/23 methotrexate sodium 2.5 mg tablet 25 mg PO WEEKLY 03/14/19 08/28/23 clopidogrel 75 mg tablet 75 mg PO DAILY 07/27/20 08/28/23 <Medina Perez APRN - Last Filed: 01/08/24 03:29> Allergies/Adverse Reactions: Allergies Allergy/AdvReac Type Severity Reaction Status Date / Time No Known Allergies Allergy Verified 08/28/23 15:37 <Medina Perez APRN - Last Filed: 01/08/24 03:29> Review of Systems Review of Systems: All systems reviewed & are unremarkable except as noted in HPI and below <Medina Perez APRN - Last Filed: 01/08/24 03:29> PMFSH Past Medical History Medical History: Medical History Abdominal aortic aneurysm (AAA) CAD (coronary artery disease) COPD (chronic obstructive pulmonary disease) HTN (hypertension) Hypertension with heart disease [place] (myocardial infarction) Pure hypercholesterolemia Rheumatoid arthritis with positive rheumatoid factor <Medina Perez APRN - Last Filed: 01/08/24 03:29> Surgical History Surgical History: Surgical History H/O cardiac catheterization History of hip replacement Hx of CABG x2, 2017 <Medina Perez APRN - Last Filed: 01/08/24 03:29> Social History Social History: Social History Smoking packs per day: 2.5 Smoking cigarettes per day: 50.0 Years smoked: 53 Smoking pack-years: 132.50 Smoking status: Former smoker Tobacco type: cigarettes Second hand tobacco smoke exposure: Yes Smoking end date: 10/27/18 Alcohol intake: current Drinks per week: 8 Alcohol use details: occasional Substance use: never Substance use type: does not use Living arrangements: with friend(s) Occupation/Education: retired Gender identity (if verbalized by the patient): Male Sexual Orientation (if Verbalized by the Patient): Straight or Heterosexual <Medina Perez APRN - Last Filed: 01/08/24 03:29> Exam Narrative: GENERAL: Well appearing, well-nourished, non-toxic, in no acute distress. HEAD: Normocephalic, atraumatic. NECK: Supple. No adenopath
[2024-01-07 23:15] VITALS: BP 133/75; PULSE 61; RESP 16; O2SAT 99
[2024-01-07] MEDS: KETOROLAC 30 MG/ML VIAL (*BKC) IV PUSH (23:15)
[2024-01-07] MEDS: HYDROmorphone HCL INJ (*CRX) 1 MG/ML SYR 0.5 MG IV PUSH (23:17)
[2024-01-08 01:00] LABS: Basophils Percent Auto 0.4 % (0.2-1.2); Eosinophils Absolute Auto 0.1 K/mm3 (0-0.3); Eosinophils Percent Auto 1.1 % (0-4.4); Hematocrit 37.6 % (42.0-52.0); Hemoglobin 12.6 g/dL (14.0-18.0); Immature Granulocyte Absolute 0.07 K/mm3 (0.00-0.031); Immature Granulocyte Percent A 0.7 % (0-0.5); Lymphocytes Absolute Auto 1.23 K/mm3 (0.9-3.2); Lymphocytes Percent Auto 12.2 % (18.3-44.2); Mean Corpuscular HGB Conc 33.5 g/dl (32-36); Mean Corpuscular Hemoglobin 33.7 pg (26-34); Mean Corpuscular Volume 100.5 fl (80-100); Mean Platelet Volume 9.4 fl (7.4-10.4); Monocytes Absolute Auto 0.5 K/mm3 (0.1-0.6); Monocytes Percent Auto 4.6 % (2.6-8.5); Neutrophils Absolute Auto 8.1 K/mm3 (1.3-6.7); Platelet Count Result 187 k/mm3 (150-375); Red Blood Count 3.74 M/mm3 (4.6-6.20); Red Cell Distribution Width 13.3 % (11.5-14.5); White Blood Count 10.1 K/mm3 (4.5-10.0)
[2024-01-08 01:11] LABS: INR 1.2; Prothrombin Time 15.4 Seconds (11.1-14.7)
--- NOTE | 2024-01-08 01:11 | ECG_ITS ---
Test Date: 2024-01-08 01:56:59 Measurements Intervals [place] Rate: 59 P: -62 NE: 162 QRS: 31 QRSD: 111 T: 36 QT: 438 QTc: 436 Interpretive Statements SINUS BRADYCARDIA POSSIBLE INFERIOR MYOCARDIAL INFARCTION , OF INDETERMINATE AGE [30 ms Q WAVE IN II/aVF] No previous ECG available for comparison Electronically Signed On 01-08-2024 14:30:47 CDT by Kadeem Gutierrez M.D.
[2024-01-08 01:12] LABS: Ethanol 205 mg/dL (<10); Partial Thromboplastin Time 29.1 Seconds (22.3-36.8)
[2024-01-08 01:13] LABS: Alanine Aminotransferase 32 U/L (6-50); Albumin Level 3.6 g/dL (3.5-5.1); Alkaline Phosphatase 99 U/L (38-126); Anion Gap 12 mmol/L (4-12); Aspartate Amino Transferase 43 U/L (17-59); Bilirubin,Total 0.8 mg/dL (0.2-1.3); Blood Urea Nitrogen 12 mg/dL (9-20); Carbon Dioxide 21 mmol/L (22-30); Chloride 98 mmol/L (98-107); Estimated CRCL calculation 74 ml/min; Estimated Glomerular Filt Rate > 60; Glucose 101 mg/dL (65-110); Sodium 131 mmol/L (137-145)
[2024-01-08] MEDS: SODIUM CHLORIDE 0.9% IV 1,000 ML 999 ML IV CONT (01:48)
[2024-01-08 02:00] VITALS: BP 117/76; PULSE 66; RESP 15; O2SAT 98
[2024-01-08 03:00] VITALS: BP 100/60; PULSE 60; RESP 12; O2SAT 98
[2024-01-08 03:53] LABS: Amphetamine Screen Urine Negative (Negative); Barbiturate Screen Urine Negative (Negative); Benzodiazepines Screen Urine Negative (Negative); Cannabinoid Screen Urine Negative (Negative); Cocaine Screen Urine Negative (Negative); Methadone Screen Urine Negative (Negative); Opiate Screen Urine Negative (Negative); Phencyclidine Screen Urine Negative (Negative)
[2024-01-08 04:45] VITALS: BP 114/84; PULSE 60; RESP 13; O2SAT 97
[2024-01-08] MEDS: THIAMINE HCL 200 MG/2 ML VIAL 100 MG IV PUSH (06:28)
[2024-01-08] MEDS: HYDROmorphone HCL INJ (*CRX) 1 MG/ML SYR 0.5 MG IV PUSH (07:25)
[2024-01-08 07:30] VITALS: BP 153/86; PULSE 63; RESP 14; O2SAT 99
--- NOTE | 2024-01-08 07:30 | PC.NURSE ---
Gown and blankets changed prior to pt transfer.
--- NOTE | 2024-01-08 07:39 | PC.NURSE ---
Report given by BROOKLYNN Oakes to BROOKLYNN Edmond @ [place] over night at 0350.
== END 2024-01-08 07:40 | disposition short-term general hospital (02) ==
PROVIDERS: Emergency Provider Registered Nurse; PCP Family Medicine
DX: S72.302A Unspecified fracture of shaft of left femur, initial encounter for closed fracture (principal); M97.02XA Periprosthetic fracture around internal prosthetic left hip joint, initial encounter; F10.129 Alcohol abuse with intoxication, unspecified; Y90.7 Blood alcohol level of 200-239 mg/100 ml; I25.10 Atherosclerotic heart disease of native coronary artery without angina pectoris; I11.9 Hypertensive heart disease without heart failure; I25.2 Old myocardial infarction; J44.9 Chronic obstructive pulmonary disease, unspecified; E78.00 Pure hypercholesterolemia, unspecified; M05.9 Rheumatoid arthritis with rheumatoid factor, unspecified; Z96.643 Presence of artificial hip joint, bilateral; Z95.1 Presence of aortocoronary bypass graft; Z85.820 Personal history of malignant melanoma of skin; Z87.891 Personal history of nicotine dependence; Z79.899 Other long term (current) drug therapy; Z79.02 Long term (current) use of antithrombotics/antiplatelets; R00.1 Bradycardia, unspecified; W10.9XXA Fall (on) (from) unspecified stairs and steps, initial encounter
CPT/HCPCS: 36415; 71045; 73502; 73552; 80053; 80307; 82077; 85025; 85610; 85730; 93005; 96361; 96374; 96375; 96376; 99285; J1171; J1885; J3411; J7030

== ENCOUNTER 2024-01-22 16:35 | Emergency (ER) | payer MEDICARE, SELFPAY ==
[2024-01-22] VITALS (19 sets, daily range): BP systolic 64–117; BP diastolic 40–98; PULSE 14–85; RESP 12–23; TEMP 36.3–36.7; O2SAT 91–100
--- NOTE | ~2024-01-22 | CT_ITS ---
CTA chest abdomen pelvis Ordering provider: Windy Yan PA-C History: . AAA, back pain, hypotension . Comparison: None. Technique: CT angiogram chest, abdomen and pelvis was performed following timed intravenous injection of contrast. Thin slice axial images and reformatted coronal images were obtained. Three dimensional reformatted images of the chest were also obtained using a [employer] workstation. Radiation reduction t echnique utilized.The dose-length product was 1574.29 mGy-cm. 100 mL Omnipaque 350 was given IV. FINDINGS: CHEST: --THORACIC AORTA: Mild atheromatous disease. No aneurysm, dissection or mediastinal hematoma. --GREAT VESSELS: Normal as visualized. --PULMONARY ARTERIES: No pulmonary embolus. --VISUALIZED THORACIC INLET: Normal. --MEDIASTINUM: Coronary arteries: Mild atheromatous disease. Heart/other: The heart is not enlarged. Lymph nodes: No mediastinal or hilar adenopathy. --LUNGS: Dependent atelectatic changes. Subsegmental atelectatic changes in the right lung base. No pulmonary nodules or masses. No infiltrates or effusions. No pneumothorax. --MUSCULOSKELETAL: Superficial soft tissues: The superficial soft tissues are normal. Bones: Age appropriate degenerative changes of the spine. ABDOMEN/PELVIS: --MUSCULOSKELETAL: Bones: Age appropriate degenerative changes of the spine. Bilateral hip arthroplasty. Bilateral sacro iliitis. Superficial soft tissues: The superficial soft tissues are normal. --UPPER ABDOMINAL ORGANS: Liver: Normal. Differential perfusion is seen in the liver. Gallbladder: Distended gallbladder with surrounding fat stranding and multiple stones suggestive of a cute cholecystitis. The enhancement in the wall is not demonstrated in the fundus area. Possibility o f disruption cannot be excluded although less likely. Spleen: Normal. Stomach/duodenum: Normal. Pancreas: Normal. Adrenals: Normal. Kidneys: Small left upper pole cyst is noted. --PELVIC ORGANS: The bladder is underfilled with Aj's catheter. Artifacts are seen in the pelvis N o bladder stones. --BOWEL AND MESENTERY: Colon: No evidence of diverticulitis.. The colon is distended with gases. No evidence of appendicitis . Small Bowel: Normal. No obstruction. Peritoneum/mesentery: No free air or free fluid. No mesenteric lymphadenopathy. --RETROPERITONEUM: No retroperitoneal lymphadenopathy. --ARTERIES: ABDOMINAL AORTA: Abdominal aortic aneurysm is seen distally measuring 4.1 cm. No evidence of fractu res seen. Mild atheromatous disease. No dissection. RENAL ARTERIES: Atherosclerotic changes bilaterally with slight narrowing on the right side. CELIAC AXIS: Atherosclerotic changes with a slight narrowing at the origin. SMA: Atherosclerotic changes with mild to moderate narrowing. DONNY: Atherosclerotic changes and originates from the aneurysmal area. ILIAC AND VISUALIZED FEMORAL ARTERIES: Bilateral moderate atherosclerotic changes with slight dilat ation of the common iliac arteries. MESENTERIC ARTERIES: Normal. IMPRESSION: CHEST: 1. No pulmonary embolism or active dissection. 2. No acute cardiopulmonary pathology. ABDOMEN/PELVIS: 1. Highly suggestive acute cholecystitis. Possibility of fracture in the area of the fundus cannot b e excluded. Cholelithiasis. 2. Abdominal aortic aneurysm measuring 4.1 cm with no definite fracture. 3. No evidence of appendicitis, diverticulitis or intestinal obstruction. Reviewed, dictated and finalized at location A. IMPRESSION: CHEST: 1. No pulmonary embolism or active dissection. 2. No acute cardiopulmonary pathology. ABDOMEN/PELVIS: 1. Highly suggestive acute cholecystitis. Possibility of fracture in the area of the fundus cannot be excluded. Cholelithiasis. 2. Abdominal aortic aneurysm measuring 4.1 cm with no definite fracture. 3. No evidence of appendicitis, diverticulitis or intestinal obstruction.
--- NOTE | ~2024-01-22 | CT_ITS ---
CT abdomen pelvis wo con Ordering provider: Antione Castle MD History: 73 years Male with . right sided ap . Comparison: May 24, 2023. Technique: CT abdomen and pelvis without IV and without oral contrast. Automated exposure control and iterative reconstruction technique were employed. The dose-length product was 922.04 mGy-cm. Findings: VISUALIZED LOWER CHEST: Dependent atelectatic changes. Minimal bronchiectatic changes in the right georgi ng base medially with subsegmental atelectasis. Pleural base nodule in the right upper lobe measuring 7 mm seen anteriorly. Follow-up CT in 6 months is advised. UPPER ABDOMINAL ORGANS: Liver: Normal. Gallbladder: Cholelithiasis with thickened wall and surrounding fat stranding suggestive of cholecyst itis. Spleen: Normal. Stomach/duodenum: Normal. Pancreas: Normal. Adrenals: Normal. Kidneys: Cyst in the left kidney upper pole residual contrast is seen in both kidneys. PELVIC ORGANS: The bladder is underfilled with Aj's catheter is seen in the bladder.. BOWEL AND MESENTERY: Colon: No evidence of diverticulitis. No evidence of appendicitis seen. Small Bowel: Normal. No obstr uction. Peritoneum/mesentery: No free air or free fluid. No mesenteric lymphadenopathy. RETROPERITONEUM: Abdominal aortic aneurysm measuring 4.2 cm. Slightly dilated iliac arteries. Mild at heromatous disease of the abdominal aorta. No retroperitoneal lymphadenopathy. MUSCULOSKELETAL: Superficial soft tissues: The superficial soft tissues are normal. Bones: Age appropriate degenerative changes of the spine. Bilateral hip arthroplasty. IMPRESSION: 1. Acute cholecystitis with cholelithiasis. Possibility of rupture cannot be excluded in the area of the fundus as mentioned in the previous report. No definite collection or free fluid seen. 2. Abdominal aortic aneurysm with no definite fracture. Reviewed, dictated and finalized at location A. IMPRESSION: 1. Acute cholecystitis with cholelithiasis. Possibility of rupture cannot be e xcluded in the area of the fundus as mentioned in the previous report. No defin ite collection or free fluid seen. 2. Abdominal aortic aneurysm with no definite fracture.
--- NOTE | ~2024-01-22 | CT_ITS ---
CT brain wo con Ordering provider: Windy Yan PA-C History: 73 years Male with . AMS . Comparison: None. Technique: CT of the head without contrast. Radiation reduction technique utilized.The dose-length product was 681 mGy-cm. FINDINGS: BRAIN PARENCHYMA AND CSF SPACES: Mild leukoaraiosis and diffuse cortical atrophy. Mild atheromatous d isease. No midline shift, mass effect or hemorrhage. The brain parenchyma and CSF spaces are otherwi se normal. Hypodensity seen in the area of the straight sinus with the Hounsfield unit -35 suggestive of a lipoma. Air is less likely. Follow-up advised. VISUALIZED PARANASAL SINUSES: Right and left maxillary and ethmoid sinus disease. Postoperative flood es in the medial wall of both maxillary sinuses MASTOIDS: Well aerated. BONES: The bones appear intact. SOFT TISSUES: Visualized nasopharynx is normal. Superficial soft tissues are normal. IMPRESSION: No definite acute intracranial findings. 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 Air is less likely. Follow-up is advised. Reviewed, dictated and finalized at location A.
--- NOTE | ~2024-01-22 | XR_ITS ---
XR hip LT 2V w AP pelvis Ordering provider: Antione Castle MD History: . recent surgery . Comparison: None. FINDINGS: BONES: No acute fracture or dislocation. HIP JOINT SPACES: Bilateral hip arthroplasty SACROILIAC JOINT SPACES/LUMBAR SPINE: The sacroiliac joint spaces shows bilateral sacroiliacs.. Mild degenerative changes of the visualized lower lumbar spine. PUBIC SYMPHYSIS: Normal. SOFT TISSUES: Slightly dilated small bowel loops which may indicate ileus. Residual contrast seen in the urinary bladder. IMPRESSION: No acute osseous abnormality Pelvis and left hip. Bilateral hip arthroplasty. Postoperative changes in the left hip area. Reviewed, dictated and finalized at location A.
--- NOTE | 2024-01-22 16:44 | ECG_ITS ---
Test Date: 2024-01-22 16:47:56 Measurements Intervals [place] Rate: 67 P: 95 MA: 195 QRS: 43 QRSD: 113 T: 56 QT: 399 QTc: 423 Interpretive Statements SINUS RHYTHM POSSIBLE OLD INFERIOR INFARCT Compared to ECG 01/08/2024 01:56:59 NO SIGNIFICANT CHANGES Electronically Signed On 01-23-2024 09:38:54 CDT by Sam Robles M.D.
[2024-01-22] MEDS: SODIUM CHLORIDE 0.9% IV 1,000 ML 999 ML (16:57)
[2024-01-22] MEDS: LACTATED RINGERS 1,000 ML 999 ML IV CONT (16:58)
[2024-01-22 17:03] LABS: Mean Corpuscular HGB Conc 33.3 g/dl (32-36); Mean Corpuscular Hemoglobin 33.7 pg (26-34); Mean Platelet Volume 8.7 fl (7.4-10.4); Platelet Count Result 298 k/mm3 (150-375); Red Blood Count 2.02 M/mm3 (4.6-6.20); Red Cell Distribution Width 14.9 % (11.5-14.5); White Blood Count 27.2 K/mm3 (4.5-10.0)
[2024-01-22 17:12] LABS: Alanine Aminotransferase 126 U/L (6-50); Alkaline Phosphatase 123 U/L (38-126); Anion Gap 13 mmol/L (4-12); Aspartate Amino Transferase 250 U/L (17-59); Bilirubin,Total 1.8 mg/dL (0.2-1.3); Blood Urea Nitrogen 84 mg/dL (9-20); Calcium 7.8 mg/dL (8.4-10.2); Carbon Dioxide 20 mmol/L (22-30); Chloride 97 mmol/L (98-107); Estimated CRCL calculation 14 ml/min; Estimated Glomerular Filt Rate 14; Glucose 125 mg/dL (65-110); Potassium 4.2 mmol/L (3.4-5.0); Sodium 130 mmol/L (137-145)
[2024-01-22 17:16] LABS: Hemoglobin 6.8 g/dL (14.0-18.0)
[2024-01-22 17:17] LABS: Hematocrit 20.4 % (42.0-52.0); INR 2.3; Prothrombin Time 25.9 Seconds (11.1-14.7)
[2024-01-22 17:18] LABS: Partial Thromboplastin Time 34.3 Seconds (22.3-36.8)
[2024-01-22 17:20] LABS: Band Neutrophils Percent 3 % (0-6); Eosinophils Absolute Manual 0.27 K/mm3 (0.02-0.50); Eosinophils Percent Manual 1 % (0-4); Lymphocytes Absolute Manual 0.81 K/mm3 (1.1-4.5); Monocytes Absolute Manual 1.36 K/mm3 (0.1-0.90); Monocytes Percent Manual 5 % (3-9); Neutrophils Absolute Manual 24.75 K/mm3 (1.3-6.7); Neutrophils Percent Manual 88 % (46-73); Total Cells Counted 100
[2024-01-22 17:21] LABS: Anisocytosis 1+; Platelet Estimate Adequate (Adequate); Schistocytes None Seen
[2024-01-22 17:24] LABS: Lactic Acid Reflex 1.4 mmol/L (0.7-2.0)
[2024-01-22 17:42] LABS: Add Urine Microscopic? YES; Appearance Urine Cloudy (Clear); Bacteria Urine None Seen /hpf; Bilirubin Urine 2+ (Negative); Blood Urine Negative (Negative); Color Urine Dark Yellow (Yellow); Glucose Urine UA Negative (Negative); Ketones Urine Trace mg/dL (Negative); Leukocyte Esterase Ur Trace LEU/UL (Negative); Need Manual Microscopic Reviewed; Nitrate Urine Positive (Negative); Protein Urine Trace mg/dL (Negative); Specific Grav Ur 1.019 (1.001-1.035); Squamous Epithelial Cell Urine None Seen /hpf (Few); WBC Urine 0-5 /hpf (0-3)
--- NOTE | 2024-01-22 18:01 | ED.GENADULT ---
HPI - General Adult General Chief complaint: Altered Mental Status Stated complaint: ams Time Seen by Provider: 01/22/24 16:47 History of Present Illness HPI narrative: Patient is a 73-year-old male who presents ER with progressive mental status change from his rehabilitation center. Patient recently underwent surgical repair of the left hip after suffering a periprosthetic fracture. Surgery occurred at [facility] system. According EMS O2 saturation 90% patient has some back pain. Here patient is alert to himself and nothing else. Related Data Home Medications Medication Instructions Recorded Confirmed atorvastatin 80 mg tablet (Lipitor) 80 mg PO DAILY 03/14/19 08/28/23 folic acid 1 mg tablet 1 mg PO DAILY 03/14/19 08/28/23 lisinopril 2.5 mg tablet 2.5 mg PO DAILY 03/14/19 08/28/23 methotrexate sodium 2.5 mg tablet 25 mg PO WEEKLY 03/14/19 08/28/23 clopidogrel 75 mg tablet 75 mg PO DAILY 07/27/20 08/28/23 Allergies Allergy/AdvReac Type Severity Reaction Status Date / Time No Known Allergies Allergy Verified 08/28/23 15:37 Review of Systems Review of Systems: ROS unobtainable: Yes unobtainable due to medical condition [facility] Past Medical History Medical History Abdominal aortic aneurysm (AAA) CAD (coronary artery disease) COPD (chronic obstructive pulmonary disease) HTN (hypertension) Hypertension with heart disease Old MS (myocardial infarction) Pure hypercholesterolemia Rheumatoid arthritis with positive rheumatoid factor Surgical History Surgical History H/O cardiac catheterization History of hip replacement Hx of CABG x2, 2017 Social History Social History Smoking packs per day: 2.5 Smoking cigarettes per day: 50.0 Years smoked: 53 Smoking pack-years: 132.50 Smoking status: Former smoker Tobacco type: cigarettes Second hand tobacco smoke exposure: Yes Smoking end date: 10/27/18 Alcohol intake: current Drinks per week: 8 Alcohol use details: occasional Substance use: never Substance use type: does not use Living arrangements: with friend(s) Occupation/Education: retired Gender identity (if verbalized by the patient): Male Sexual Orientation (if Verbalized by the Patient): Straight or Heterosexual Exam Narrative: GENERAL: ill-appearing, well-nourished, and in no acute distress. HEAD: Normocephalic, atraumatic. EYES: PERRL and EOMI. ENT: Mucous membranes moist. CHEST: Clear to auscultation. No respiratory distress. HEART: Regular rate and rhythm. Normal peripheral pulses. ABDOMEN: Soft, nontender, nondistended. EXTREMITIES: Normal range of motion. No edema. well-healing surgical incision site left hip without breakdown of wound, no erythema. SKIN: Warm, dry, no rash. NEURO: Alert and oriented x1. PSYCH: Normal mood and affect. Course Course Emergency Course: 2127: patient accepted by Dr. Echeverria pending repeat CT abd/pel and XR hip since patient had new pain. the patient has received a 30 milliliter/kilogram bolus and 2 units of blood. He also received morphine for new onset right upper quadrant pain. Family has been updated regularly. Patient is also now at his normal mental status. Vital Signs Vital signs: Vital Signs Temperature 98.1 F 01/22/24 16:37 Pulse Rate 71 01/22/24 16:37 Respiratory Rate 17 01/22/24 16:37 Blood Pressure 64/45 L 01/22/24 16:37 Pulse Oximetry 93 01/22/24 16:37 Oxygen Delivery Room Air 01/22/24 16:37 Temperature 98.0 F 01/22/24 23:46 Pulse Rate 78 01/23/24 02:06 Respiratory Rate 17 01/23/24 02:06 Blood Pressure 102/58 L 01/23/24 02:06 Pulse Oximetry 97 01/23/24 02:06 Oxygen Delivery Room Air 01/22/24 16:53 Medical Decision Making Vital Signs Vital Signs: Vital Signs Temperature 98.1 F 01/22/24 16:37 Pulse Rate 71 01/22/24 16:37 Respiratory Rate 17 01/22/24 16:37 Blood Pressure 64/45 L 01/22/24 16:37 Pulse Oximetry 93 01/22/24 16:37 Oxygen Delivery Room Air 01/22/24 16:37 Temperature 98.0 F 01/22/24 23:46 Pulse Rate 78 01/23/24 02:06 Respiratory Rate 17 01/23/24 02:06 Blood Pressure 102/58 L 01/23/24 02:06 Pulse Oximetry 97 01/23/24 02:06 Oxygen Delivery Room Air 01/22/24 16:53 Lab Data 01/22/24 16:55 01/22/24 16:55 Labs: Lab Results 01/22/24 01/22/24 01/22/24 Range/Units 16:54 16:55 17:05 WBC 27.2 H (4.5-10.0) K/mm3 RBC 2.02 L (4.6-6.20) M/mm3 Hgb 6.8 L* D (14.0-18.0) g/dL Hct 20.4 L* (42.0-52.0) % MCV 101.0 H (80-100) fl MCH 33.7 (26-34) pg MCHC 33.3 (32-36) g/dl RDW 14.9 H (11.5-14.5) % Plt Count 298 D (150-375) k/mm3 MPV 8.7 (7.4-10.4) fl Immature Gran % (Auto) Not Reportable Neut % (Auto) Not Reportable Lymph % (Auto) Not Reportable [place] % (Auto) Not Reportable Eos % (Auto) Not Reportable Baso % (Auto) Not Reportable Lymph # (Auto) Not Reportable [place] # (Auto) Not Reportable Eos # (Auto) Not Reportable Baso # (Auto) Not Reportable Abs Immat Gran (auto) Not Reportable Absolute Neuts (auto) Not Reportable Absolute Nucleated RBC Not Reportable Total Counted 100 Neutrophils % (Manual) 88 H (46-73) % Band Neutrophils % 3 (0-6) % Lymphocytes % (Manual) 3.0 L (18-44) % Monocytes % (Manual) 5 (3-9) % Eosinophils % (Manual) 1 (0-4) % Nucleated RBC % Not Reportable Abs Neuts (Manual) 24.75 H (1.3-6.7) K/mm3 Abs Lymphs (Manual) 0.81 L (1.1-4.5) K/mm3 Abs Monocytes (Manual) 1.36 H (0.1-0.90) K/mm3 Absolute Eos (Manual) 0.27 (0.02-0.50) K/mm3 Platelet Estimate Adequate (Adequate) Anisocytosis 1+ Schistocytes None seen PT 25.9 H (11.1-14.7) Seconds INR 2.3 APTT 34.3 (22.3-36.8) Seconds Sodium 130 L (137-145) mmol/L Potassium 4.2 (3.4-5.0) mmol/L Chloride 97 L (98-107) mmol/L Carbon Dioxide 20 L (22-30) mmol/L Anion Gap 13 H (4-12) mmol/L BUN 84 H D (9-20) mg/dL Creatinine 4.20 H (0.7-1.3) mg/dL Estim Creat Clear Calc 14 ml/min Estimated GFR 14 L (59 - ) Glucose 125 H (65-110) mg/dL Lactic Acid (0.7-2.0) mmol/L Calcium 7.8 L (8.4-10.2) mg/dL Total Bilirubin 1.8 H (0.2-1.3) mg/dL AST 250 H (17-59) U/L ALT 126 H (6-50) U/L Alkaline Phosphatase 123 (38-126) U/L Total Protein 6.0 L (6.3-8.2) g/dL Albumin 3.0 L (3.5-5.1) g/dL Lipase 72 (23-300) U/L Urine Color Dark yellow (Yellow) Urine Appearance Cloudy H (Clear) Urine pH 5.0 (5.0-9.0) Ur Specific [place] 1.019 (1.001-1.035) Urine Protein Trace (Negative) mg/dL Urine Glucose (UA) Negative (Negative) mg/dL Urine Ketones Trace H (Negative) mg/dL Ur Blood (Man) Negative (Negative) Urine Nitrate Positive H (Negative) Urine Bilirubin 2+ H (Negative) Urine Urobilinogen 1.0 (<2.0) mg/dL Add Ur Microanalysis Reviewed Leukocyte Esterase Rfl Trace H (Negative) YANIQUE/UL Urine RBC 11-20 H (0-2) /hpf Urine WBC 0-5 (0-3) /hpf Ur Squamous Epith Cells None seen (Few) /hpf Urine Bacteria None seen /hpf Urine Casts 3-5 Blood Type O Negative Antibody Screen Negative Crossmatch See Detail 10/28/24 Range/Units 17:07 WBC (4.5-10.0) K/mm3 RBC (4.6-6.20) M/mm3 Hgb (14.0-18.0) g/dL Hct (42.0-52.0) % MCV (80-100) fl MCH (26-34) pg MCHC (32-36) g/dl RDW (11.5-14.5) % Plt Count (150-375) k/mm3 MPV (7.4-10.4) fl Immature Gran % (Auto) Neut % (Auto) Lymph % (Auto) [place] % (Auto) Eos % (Auto) Baso % (Auto) Lymph # (Auto) [place] # (Auto) Eos # (Auto) Baso # (Auto) Abs Immat Gran (auto) Absolute Neuts (auto) Absolute Nucleated RBC Total Counted Neutrophils % (Manual) (46-73) % Band Neutrophils % (0-6) % Lymphocytes % (Manual) (18-44) % Monocytes % (Manual) (3-9) % Eosinophils % (Manual) (0-4) % Nucleated RBC % Abs Neuts (Manual) (1.3-6.7) K/mm3 Abs Lymphs (Manual) (1.1-4.5) K/mm3 Abs Monocytes (Manual) (0.1-0.90) K/mm3 Absolute Eos (Manual) (0.02-0.50) K/mm3 Platelet Estimate (Adequate) Anisocytosis Schistocytes PT (11.1-14.7) Seconds INR APTT (22.3-36.8) Seconds Sodium (137-145) mmol/L Potassium (3.4-5.0) mmol/L Chloride (98-107) mmol/L Carbon Dioxide (22-30) mmol/L Anion Gap (4-12) mmol/L BUN (9-20) mg/dL Creatinine (0.7-1.3) mg/dL Estim Creat Clear Calc ml/min Estimated GFR (59 - ) Glucose (65-110) mg/dL Lactic Acid 1.4 (0.7-2.0) mmol/L Calcium (8.4-10.2) mg/dL Total Bilirubin (0.2-1.3) mg/dL AST (17-59) U/L ALT (6-50) U/L Alkaline Phosphatase (38-126) U/L Total Protein (6.3-8.2) g/dL Albumin (3.5-5.1) g/dL Lipase (23-300) U/L Urine Color (Yellow) Urine Appearance (Clear) Urine pH (5.0-9.0) Ur Specific [place] (1.001-1.035) Urine Protein (Negative) mg/dL Urine Glucose (UA) (Negative) mg/dL Urine Ketones (Negative) mg/dL Ur Blood (Man) (Negative) Urine Nitrate (Negative) Urine Bilirubin (Negative) Urine Urobilinogen (<2.0) mg/dL Add Ur Microanalysis Leukocyte Esterase Rfl (Negative) YANIQUE/UL Urine RBC (0-2) /hpf Urine WBC (0-3) /hpf Ur Squamous Epith Cells (Few) /hpf Urine Bacteria /hpf Urine Casts Blood Type Antibody Screen Crossmatch Imaging Data Radiologist's impression: ITS Impressions Head CT 01/22/24 18:07 IMPRESSION: No definite acute intracranial findings. 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 Air is less likely. Follow-up is advised. Chest/Abdomen/Pelvis CTA 01/22/24 18:19 IMPRESSION: CHEST: 1. No pulmonary embolism or active dissection. 2. No acute cardiopulmonary pathology. ABDOMEN/PELVIS: 1. Highly suggestive acute cholecystitis. Possibility of fracture in the area of the fundus cannot be excluded. Cholelithiasis. 2. Abdominal aortic aneurysm measuring 4.1 cm with no definite fracture. 3. No evidence of appendicitis, diverticulitis or intestinal obstruction. Hip/Pelvis X-Ray 01/22/24 22:34 IMPRESSION: No acute osseous abnormality Pelvis and left hip. Bilateral hip arthroplasty. Postoperative changes in the left hip area. Abdomen/Pelvis CT 01/22/24 23:39 IMPRESSION: 1. Acute cholecystitis with cholelithiasis. Possibility of rupture cannot be excluded in the area of the fundus as mentioned in the previous report. No definite collection or free fluid seen. 2. Abdominal aortic aneurysm with no definite fracture. Critical Care Time Critical Care Time Critical Care Time: Yes Total Critical Care Time: 35 Discharge Plan Discharge Clinical Impression: Acute cholecystitis, Anemia, MARK (acute kidney injury) Patient Disposition: Acute Care Hospital Condition: Guarded Prognosis Prescriptions: No Action atorvastatin [Lipitor] 80 mg tablet 80 mg PO DAILY Hold Instructions: .Provider Order lisinopril 2.5 mg tablet 2.5 mg PO DAILY folic acid 1 mg tablet 1 mg PO DAILY methotrexate sodium 2.5 mg tablet 25 mg PO WEEKLY Anoro Ellipta 62.5-25 mcg/actuation blister with device 1 inh inhalation DAILY Qty: 60 0RF albuterol sulfate 90 mcg/actuation HFA aerosol inhaler 1 inh inhalation Q4H PRN (Reason: shortness of breath or wheezing) Qty: 8.5 0RF clopidogrel 75 mg tablet 75 mg PO DAILY ferrous sulfate [FeroSul] 325 mg (65 mg iron) tablet See Rx Instructions .ROUTE .COMPLEX Qty: 180 2RF Dose Instruction: TAKE 1 TABLET BY MOUTH TWICE DAILY Rx Instructions: TAKE 1 TABLET BY MOUTH TWICE DAILY carvedilol [Coreg] 12.5 mg tablet 12.5 mg PO Q12H Qty: 180 1RF tamsulosin 0.4 mg capsule See Rx Instructions .ROUTE .COMPLEX Qty: 90 1RF Dose Instruction: TAKE 1 CAPSULE BY MOUTH DAILY Rx Instructions: TAKE 1 CAPSULE BY MOUTH DAILY benzonatate 200 mg capsule 200 mg PO TID PRN (Reason: cough) Qty: 20 0RF Paxlovid 300 mg (150 mg x 2)-100 mg tablets,dose pack See Rx Instructions PO .COMPLEX Qty: 30 0RF Rx Instructions: take TWO 150 mg tablets of nirmatrelvir with ONE 100 mg tablet of ritonavir twice daily for 5 days PO omeprazole 40 mg capsule,delayed release(DR/EC) See Rx Instructions .ROUTE .COMPLEX Qty: 90 2RF Dose Instruction: TAKE 1 CAPSULE BY MOUTH DAILY Rx Instructions: TAKE 1 CAPSULE BY MOUTH DAILY Follow-up/Referrals: Wong Kohler MD [Primary Care Provider] -
[2024-01-22] MEDS: PIPERACILLN/TAZ 3.375GM/NS50ML 3.375 GM/50 ML BAG IVPB (18:19)
[2024-01-22] MEDS: SODIUM CHLORIDE 0.9% IV 1,000 ML 999 ML IV CONT (18:19)
[2024-01-22] MEDS: TUBING, BLOOD SET 1 EACH XX ×2 (18:49→20:07)
[2024-01-22] MEDS: SODIUM CHLORIDE 0.9% IV 250 ML 30 ML IV CONT (18:49)
[2024-01-22 19:28] LABS: Lipase 72 U/L (23-300)
--- NOTE | 2024-01-22 19:58 | PC.NURSE ---
patient alert and awake at this time. patient is A&Ox2 at this time. patient able to hold and continue conversation.
[2024-01-22] MEDS: MORPHINE SULFATE (*CRX) 4 MG/ML INJ IV PUSH ×2 (20:52→23:55)
[2024-01-23] MEDS: SODIUM CHLORIDE 0.9% IV 1,000 ML 150 ML IV CONT (00:52)
--- NOTE | 2024-01-23 01:47 | PC.NURSE ---
Pt accepted to [facility] bed 2608A. REport called to [facility]. Transport arranged by ED bilingual secretary. ETA 0200.
[2024-01-23 02:06] VITALS: BP 102/58; PULSE 78; RESP 17; O2SAT 97
== END 2024-01-23 02:08 | disposition short-term general hospital (02) ==
PROVIDERS: Physician Assistant; Emergency Provider Emergency Medicine; PCP Family Medicine
DX: N17.9 Acute kidney failure, unspecified (principal); D64.9 Anemia, unspecified; K80.00 Calculus of gallbladder with acute cholecystitis without obstruction; I25.10 Atherosclerotic heart disease of native coronary artery without angina pectoris; I11.9 Hypertensive heart disease without heart failure; I25.2 Old myocardial infarction; J44.9 Chronic obstructive pulmonary disease, unspecified; E78.00 Pure hypercholesterolemia, unspecified; M05.9 Rheumatoid arthritis with rheumatoid factor, unspecified; Z96.643 Presence of artificial hip joint, bilateral; Z95.1 Presence of aortocoronary bypass graft; Z87.891 Personal history of nicotine dependence; I71.40 Abdominal aortic aneurysm, without rupture, unspecified; R93.0 Abnormal findings on diagnostic imaging of skull and head, not elsewhere classified; Z79.899 Other long term (current) drug therapy; Z79.02 Long term (current) use of antithrombotics/antiplatelets
CPT/HCPCS: 36415; 36430; 70450; 71275; 73502; 74174; 74176; 80053; 81001; 83605; 83690; 85025; 85610; 85730; 86850; 86900; 86901; 86920; 87040; 87086; 93005; 96361; 96365; 96375; 96376; 99285; J2270; J2543; J7030; J7050; J7120; P9016; Q9967

== ENCOUNTER 2024-08-28 13:07 | Outpatient (CLI) | payer MEDICARE, SELFPAY ==
--- NOTE | ~2024-08-28 | CT_ITS ---
CT Scan of the Chest without Contrast: Clinical Indication: Pulmonary nodule Technique: Contiguous sections were acquired throughout the chest without intravenous contrast. Dose reduction technique was used on this scan by utilizing automated exposure control and iterative recon struction technique. The dose-length product (DLP) was 112.80 mGy-cm. COMPARISON: 01/22/2024 Findings: There is no evidence of any significant mediastinal, hilar or axillary lymphadenopathy. Extensive cor onary artery calcifications are present. There is no evidence of pleural or pericardial effusion. . Stable 2 mm right apical pulmonary nodule. Mild emphysema present. There is linear right basilar sc arring or atelectasis. Images through the upper abdomen reveal no abnormalities. Impression: Stable 2 mm apical nodule, most likely benign. Mild emphysema. Reviewed, dictated and finalized at [facility]. Impression: Stable 2 mm apical nodule, most likely benign. Mild emphysema.
--- OUTSIDE RECORDS SUMMARY | 2024-08-28 13:12 | XMS_ITS | Clinical Summary ---
Author Organization [facility] Address [address] [place] [address] Care Team Providers Care Tiltrotor Crew Chief Name Role Phone Wong Kohler MD Primary Care Provider [phone] Source Comments [facility],non-owned Affiliates and Associated Physician Practices is amultiple site organization consisting of ambulatory clinics and hospital sitesin [place], [place], [place] and [place]. This disclosure is being madepursuant to the Care Everywhere program and may not contain all information available regarding this patient. Last updated 17.[facility] Allergies No known active allergies Medications * Be aware that medications may not be up to date on this document. Alwaysverify current medications with the patient. atorvastatin (LIPITOR) 80 MG tablet at bedtime 0 Active carvedilol (COREG) 12.5 MG tablet Take 1 (one) tablet by mouth 2 times daily with morning and evening meal 0 Active clopidogrel (PLAVIX) 75 MG tablet 1 (one) tablet once daily 0 Active folic acid (FOLVITE) 1 MG tablet 0 Active omeprazole (PRILOSEC) 40 MG capsule Take 1 (one) capsule by mouth daily before breakfast 0 Active tamsulosin (FLOMAX) 0.4 MG capsule 1 (one) capsule at bedtime 0 Active ezetimibe (Zetia) 10 MG tablet Take 1 (one) tablet by mouth once daily 4 Active ferrous sulfate 325 (65 FE) MG tablet Take 1 (one) tablet by mouth daily with breakfast Active methotrexate 2.5 MG tablet Take 5 (five) tablets by mouth every Monday 4 Active ibuprofen (Motrin) 200 MG tablet Take 1 (one) tablet by mouth every 6 hours as needed for Pain Active oxyCODONE-aceta minophen (Percocet) 7.5-325 MG tabletIndicatio ns:Hip fracture, left, sequela Take 1 (one) tablet by mouth every 4 hours as needed 12 tablet 4 Active apixaban (Eliquis) 2.5 MG tablet Take 1 (one) tablet by mouth 2 times daily for 33 days 4 Active losartan (Cozaar) 25 MG tablet Take 1 (one) tablet by mouth once daily 4 Active Active Problems Problem Noted Date Diagnosed Date Hip fracture, left, sequela 01/08/2024 Hip arthritis 01/28/2020 Primary osteoarthritis of left knee 11/15/2019 Anemia 05/31/2019 Overview (11/15/2019): Last Assessment & Plan: Lab Results Component Value Date WBC 7.2 02/27/2019 HGB 11.8 (L) 02/27/2019 HCT 37.0 (L) 02/27/2019 MCV 98.7 (H) 02/27/2019 LABPLAT 280 02/27/2019 Patient failed to return for additional lab advised after 02/2020 visit. Will include with lab today. H/O cardiomyopathy 04/10/2019 History of gastric ulcer 11/30/2018 Former heavy cigarette smoker (20-39 per day) Overview (11/15/2019): Last Assessment & Plan: Quit 10/27/2018. DDD (degenerative disc disease), lumbar 07/01/19 18 Overview (11/15/2019): Last Assessment & Plan: Continue gabapentin. History of right hip replacement 06/30/2017 Overview (11/15/2019): 2017 - Hall Postoperative dislocation x 2 Last Assessment & Plan: Recurrent hip dislocation; Ortho Dr. Elliot Hall Coronary artery disease invo lving tanana coronary artery of tanana heart without angina pectoris 05/18/2017 Overview (11/15/2019): Last Assessment & Plan: Denies headache, dizziness, chest pain, palpitations, shortness of breath, edema, orthopnea, PND. History of vitamin D deficiency 05/16/2014 Overview (11/15/2019): Last Assessment & Plan: May discontinue D2 prescription and substitute over the counter D3 2000 international units daily. Social History Tobacco Use Types Packs/Day Years Used Date Smoking Tobacco: Former Cigarettes Q uit: 11/2018 Smokeless Tobacco: Never Tobacco Cessation:Counseling Given: Not Answered Alcohol Use Standard Drinks/Week Comments Yes 6 (1 standard drink = 0.6 oz pur e alcohol) weekly AUDIT-C Answer Date Recorded Q1: How often do you have a drink containing alc ohol? 2-3 times a week 01/08/2024 Q2: How many drinks containi ng alcohol do you have on a typical day when you are drinking? 1 or 2 01/08/2024 Q3: How often do you have si x or more drinks on one occasion? Never 01/08/2024 Overall Financial Resource Strain (CARDIA) Answe r Date Recorded How hard is it for you to pa y for the very basics like food, housing, medical care, and heating? Not hard at all 01/08/2024 [facility] Occup[facility] - Occupational Stress Questionnaire Answer Date Recorded Do you feel stress - tense, restless, nervous, or anxious, or unable to sleep at night because your mind is troubled all the time - these days? Not at all 01/08/2024 Hunger Vital Sign Answer Date Recorded Within the past 12 months, y ou worried that your food would run out before you got the money to buy more. Never true 01/08/20 24 Within the past 12 months, t he food you bought just didn't last and you didn't have money to get more. Never true 01/08/2024 PRAPARE - Transportation Answer Date Re corded In the past 12 months, has l ack of transportation kept you from medical appointments or from getting medications? No 12/25 In the past 12 months, has l ack of transportation kept you from meetings, work, or from getting things needed for daily living? No 01/08/2024 Housing Stability Vital Sign Answer Jere e Recorded In the last 12 months, was t here a time when you were not able to pay the mortgage or rent on time? No 01/08/2024 In the past 12 months, how m any times have you moved where you were living? 0 01/08/2024 At any time in the past 12 m [facility], were you homeless or living in a m[facility]p (including now)? 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 Gender Identity Not on file Sexual Orientation Not on file Last Filed Vital Signs Vital Sign Reading Time Taken Comments Blood Pressure 137/78 01/12/2024 4:13 PM CDT Pulse 85 01/12/2024 4:13 PM CDT Temperature 37.1 C (98.7 F) 01/12/2024 4:13 PM CDT Respiratory Rate 18 01/12/2024 4:13 PM CDT Oxygen Saturation 91% 01/12/2024 4:13 PM CDT Inhaled Oxygen Concentration - - Weight 86.5 kg (190 lb 12.8 oz) 01/11/2024 5:44 AM CDT Height 177.8 cm (5' 10) 01/09/2024 4:00 AM CDT Body Mass Index 27.38 01/09/2024 4:00 AM CDT Plan of Treatment Health Maintenance Due Date Last Done Comments COLOGUARD (AGES 45-75) - COLON CA SCREENING 1950 COLON MONITORING 1950 COLONOSCOPY - COLON CA SCREENING 1950 CT COLONOGRAPHY - COLON CA SCREENING 1950 Colorectal Cancer Screening 1950 FIT - COLON CA SCREENING 1950 FLEX SIG - COLON CA SCREENING 1950 DTAP/TDAP/TD VACCINES (1 - Tdap) 1969 PNEUMOCOCCAL VACCINE 50+ (1 of 2 - PCV) 1969 ZOSTER VACCINE (1 of 2) 2000 Respiratory Syncytial Virus (RSV) Vaccine Pt: or over 60 yrs (1 - Risk 60-74 years 1-dose series) 2010 AAA SCREENING 08/03/2015 COVID-19 VACCINE ( season) 2023 01/22/2021, 06/05/2020, 05/08/2020 DEPRESSION SCREENING 03/27/2024 MEDICARE AWV CALENDAR YEAR 2024 INFLUENZA VACCINE (Season Ended) 2024 01/22/2021, 11/15/2019, 01/28/2019, Additional history exists SCREENING FOR DIABETES 01/11/2027 , 01/11/2024, 01/10/2024, Additional history exists HEPATITIS C SCREENING Completed 03/05/2014 HEPATITIS B VACCINE Aged Out No longe r eligible based on patient's age to complete this topic HIB VACCINE Aged Out No longer eligi ble based on patient's age to complete this topic HPV VACCINE Aged Out No longer eligi ble based on patient's age to complete this topic MENINGOCOCCAL (Group B) VACCINE SHARED DECISION-MAKING Aged Out No longer eligible based on patient's age to complete this topic MENINGOCOCCAL GROUPS A/C/Y/W VACCINE Aged Out No longer eligible based on patient's age to complete this topic Medical Devices Implanted Type Area Vessel Scrapper Helper Device Identifier Shelf Expiration Date Model / Serial / Lot Cable Orth Ss 2mm Hip Clp Accord Implanted:Qty: 1 on 01/10/2024 by Shawn Conrad MD at [facility] Cable Left: Femur [employer] 04/03/2033 [id number] / / [id number] Cable Orth Cocr 2mm 75mm Troch Clp Implanted:Qty: 1 on 01/10/2024 by Shawn Conrad MD at [facility] Cable Left: Femur [employer] 07/12/2033 [id number] / / [id number] Continuum Acetabularv Trabeculr Metal Shell With Cluster Holes Implanted:Qty: 1 on 01/28/2020 by Abe Dunham IV, MD at [facility] Left: Hip 11/10/2029 [id number] / / [id number] Continuum Trilogy It [employer] It Acetabular Systems Longevity Highly Crosslinked Polethyene Implanted:Qty: 1 on 01/28/2020 by Abe Dunham IV, MD at [facility] Left: Hip 04/26/2024 [id number] / / [id number] Sl-Plus /Integrtion-Plu s Flor Stem Lateral With Ti/Macdonald Implanted:Qty: 1 on 01/28/2020 by Abe Dunham IV, MD at [facility] Left: Hip 02/13/2026 [id number] / / [id number] Head Fem +4mm 12/14 Tpr 36mm Hip Oxnm Implanted:Qty: 1 on 01/28/2020 by Abe Dunham IV, MD at [facility] Left: Hip [employer] 11/30/2029 [id number] / / [id number] Redapt Femoral High Offset Implanted:Qty: 1 on 01/10/2024 by Shawn Conrad MD at [facility] Left: Femur [employer] 09/19/2026 [id number] / / [id number] Slv Fem Rd 50mm 22-25mm Redapt Mdf 18-19 Implanted:Qty: 1 on 01/10/2024 by Shawn Conrad MD at [facility] Left: Femur [employer] 10/17/2026 [id number] / / [id number] Head Fem +4mm 12/14 Tpr 36mm Hip Oxnm Implanted:Qty: 1 on 01/10/2024 by Shawn Conrad MD at [facility] Left: Femur [employer] 09/03/2033 [id number] / / [id number] Cable Orth Ss 2mm Hip Clp Accord Implanted:Qty: 1 on 01/10/2024 by Shawn Conrad MD at [facility] Left: Femur [employer] 01/19/2033 [id number] / / [id number] Cable Orth Cocr 2mm 75mm Troch Clp Implanted:Qty: 1 on 01/10/2024 by Shawn Conrad MD at [facility] Left: Femur [employer] 04/03/2033 [id number] / / [id number] Troch Plate Implanted:Qty: 1 on 01/10/2024 by Shawn Conrad MD at [facility] Left: Femur [employer] [id number] / / Blunt Tip 4.5 Screw Implanted:Qty: 1 on 01/10/2024 by Shawn Conrad MD at [facility] Left: Femur [employer] [id number] / / 4.5 Locking Screw Implanted:Qty: 1 on 01/10/2024 by Shawn Conrad MD at [facility] Left: Femur [employer] [id number] / / 3.5 Locking Screw Implanted:Qty: 2 on 01/10/2024 by Shawn Conrad MD at [facility] Left: Femur [id number] / / Cable Orth Cocr 2mm 75mm Troch Clp Implanted:Qty: 1 on 01/10/2024 by Shawn Conrad MD at [facility] Left: Femur [employer] 01/03/2033 [id number] / / [id number] Cable Orth Cocr 2mm 75mm Troch Clp Implanted:Qty: 1 on 01/10/2024 by Shawn Conrad MD at [facility] Left: Femur [employer] 07/02/2033 [id number] / / [id number] Cable Orth Cocr 2mm 75mm Troch Clp Implanted:Qty: 1 on 01/10/2024 by Shawn Conrad MD at [facility] Left: Femur [employer] 10/14/2030 [id number] / / [id number] Cable Orth Cocr 2mm 75mm Troch Clp Implanted:Qty: 1 on 01/10/2024 by Shawn Conrad MD at [facility] Left: Femur [employer] 07/12/2033 [id number] / / [id number] Cable Orth Cocr 2mm 75mm Troch Clp Implanted:Qty: 1 on 01/10/2024 by Shawn Conrad MD at [facility] Left: Femur [employer] 11/28/2032 [id number] / / [id number] Procedures Procedure Name Priority Date/Time Associated Diagnosis Comments BASIC METABOLIC PANEL (CALCIUM TOTAL) AM Draw 01/12/2024 3:36 AM CDT HEPATITIS SCREEN ACUTE Routine 03/05/2014 12:39 PM WAYS OPERATOR from Last 3 Months or Most Recently Relevant to Health Maintenance Results * (ABNORMAL) BASIC METABOLIC PANEL (CALCIUM TOTAL) (01/12/2024 3:36 AM CDT) Glucose 102(H) 70 - 99 mg/dL 01/12/2024 5:34 AM CDT [facility] Sodium 136 136 - 145 mmol/L 01/12/2024 5:34 AM CDT [facility] Potassium 4.2 3.5 - 5.1 mmol/L 01/12/2024 5:34 AM CDT [facility] Chloride 105 98 - 107 mmol/L 01/12/2024 5:34 AM CDT [facility] CO2 25 22 - 29 mmol/L 01/12/2024 5:34 AM CDT [facility] Calcium 8.2(L) 8.4 - 10.4 mg/dL 01/12/2024 5:34 AM CDT [facility] Anion Gap 6 6 - 16 mmol/L 01/12/2024 5:34 AM CDT [facility] BUN 24 7 - 26 mg/dL 01/12/2024 5:34 AM CDT [facility] Creatinine 0.85 0.72 - 1.25 mg/dL 01/12/2024 5:34 AM CDT [facility] eGFR by CKD-EPI >90 >=90 mL/min/1.7 3 m2 01/12/2024 5:34 AM CDT [facility] Blood BLOOD SPECIMEN / Unknown Lab Venipuncture / Unknown 01/12/2024 3:36 AM CDT 01/12/2024 4:23 AM CDT Natalia Zee MD LAB - CHEMISTRY ORDERABLES Sussy l Result Performing Organization Address City/[facility]/ZIP Co de Phone Number [facility] [address] [phone] * HEPATITIS SCREEN ACUTE (03/05/2014 12:39 PM WAYS OPERATOR) Hepatitis A Virus Antibody IgM NON-REACTI VE NON-REACT [facility]) Hepatitis B Virus Surface Antigen NON-REACTI VE NON-REACT [facility]) Hepatitis B Core Virus Antibody IgM NON-REACTI VE NON-REACT [facility]) Hepatitis C Antibody NON-REACTI VE NON-REACT [facility]) Signal/Cutoff 0.03 <1.00 [facility]) Comment: Test Performed at: [facility] [id number] [place] [address] ELEAZAR ARMANDO DO,MPH Blood specimen (specimen) BLOOD SPECIMEN / Unknown 03/05/2014 12:39 PM WAYS OPERATOR 03/05/2014 12:41 PM WAYS OPERATOR Result [facility] Ann Guillen MD LAB - CHEMISTRY ORDERABLE S Edited Result - Final Performing Organization Address City/[facility]/ZIP Co de Phone Number [facility] ([facility]) [phone] from Last 3 Months or Most Recently Relevant to Health Maintenance Insurance MEDICARE PENDING SALE TO [facility] [place] [address] MEDICARE MEDICARE Member Subscriber Plan / Payer (Ef fective for All Dates) Name:Taya Hyde Member ID:[id number] Relation to Subscriber:Self Name:TAYA HYDE Subscriber ID:[id number] Payer ID:Not on file Group ID:Not on file Type:Medicare Address: [place] [id number] MEDICARE Member Subscriber Plan / Payer (Ef fective for All Dates) Name:Taya Hyde Member ID:[id number] Relation to Subscriber:Self Name:Taya Hyde Subscriber ID:[id number] Payer ID:Not on file Group ID:Not on file Type:Medicare Address: [place] [phone] Advance Directives * Full Code (Latest Code Status on File) Date Activated Date Inactivated Comments 01/08/2024 8:45 AM 01/12/2024 6:28 PM * Full Code Date Activated Date Inactivated Comments 01/28/2020 10:43 AM 01/30/2020 1:29 PM Care Teams Tiltrotor Crew Chief Relationship Specialty Start Date End Date Wong Kohler MD [address] [place] [address] PCP - General 10/15/18
--- OUTSIDE RECORDS SUMMARY | 2024-08-28 13:12 | XMS_ITS | Encounter Summary ---
Author Organization [facility] Address [address] [place] [address] Care Team Providers Care Stocklayer Name Role Phone Wong Kohler MD Primary Care Provider [phone] Encounter Details Date Type Department Care Team (Late st Contact Info) Description 12/19/2018 Lab Requisition [facility] [address] [place] [address] Miki Shannon MD [phone] [address] Social History Tobacco Use Types Packs/Day Years Used Date Smoking Tobacco: Never Assessed Sex and Gender Information Value Date Recorded Sex Assigned at Not on file 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 Gender Identity Not on file Sexual Orientation Not on file documented as of this encounter Plan of Treatment Not on file documented as of this encounter Procedures Procedure Name Priority Date/Time Associated Diagnosis Comments DERMPATH SLIDE CONSULT Routine 12/19/2018 12:00 AM CDT documented in this encounter Results * DERMPATH SLIDE CONSULT (12/19/2018 12:00 AM CDT) Case Report Dermatopathology Report Case: [id number] Authorizing Provider: Miki Shannon MD Collected: 12/19/2018 12:00 AM Ordering Location: [facility] Received: 12/19/2018 09:04 AM Pathologist: Sameera Briones MD Specimen: Slide(s), Right forehead (OSC# [id number]), Mid forehead (OSC# [id number]) 12:57 PM [facility] Final Diagnosis Specimen A1. Slide(s), Right forehead (OSC# [id number]): INTRADERMAL MELANOCYTIC NEVUS (D22.39) NOT PRESENT AT SAMPLED MARGIN Specimen A2. 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 Intradermal melanocytic nevus/blue nevus. All slides returned. A2: Received are 4 slide(s) labeled as [id number], Rosetta A, and negative. Compound nevus with architectural disorder, R/O melanoma in situ. All slides returned. Any additional sections, special stains or immunohistochemical stains performed by our laboratory will be kept here on file. 12:57 PM [facility] Microscopic Description Specimen A1. Slide(s), Right forehead (OSC# [id number]): There are nests of cytologically bland melanocytes within the dermis that mature with depth and are highlighted by a MART-1 stain. Sections show abundant melanin within melanophages within the lesion. This lesion is not present at the sampled margin of the specimen. Specimen A2. Slide(s), Mid forehead (OSC# [id number]): There is a proliferation of melanocytes distributed in an irregular pattern along the dermal-epidermal junction with single cells predominating. Extension down the follicular epithelium and focal areas of confluence are present. This melanocytic proliferation is highlighted on MART-1. This lesion is present at both tips and both lateral margins of the specimen. 12:57 PM [facility] Disclaimer An external and internal positive and negative controls are appropriate for the histochemical, immunohistochemical and immunofluorescence stain(s) in this case (if any), except where stated explicitly. The performance characteristics of the stain(s) cited in this report were developed and its performance characteristic determined by the Dermatopathology Laboratory at [facility], directed by Dr. Reji Pierce. These tests need not be, and therefore are not, approved by the [place] Food and Drug Administration. The tests are used for clinical purposes. Billing Codes Specimen Charges Stain Charges 03779 1 9 12:57 PM CDT [facility] Embedded Images 9 12:57 PM CDT [facility] Pathology/Cytolog y SLIDE / Unknown 12/19/2018 12/19/2018 9:04 AM CDT Miki Shannon MD LAB - PATHOLOGY/CYTOLOGY ORDER SELMA Final Result DERMATOPATHOLOGY LABORATORY [facility] - Department of Dermatology [address] [place] [address] [address] [phone] documented in this encounter Visit Diagnoses Not on filedocumented in this encounter Additional Health Concerns Infection Onset Date Last Indicated Resolved Time COVID-19 Under Investigation 01/25/2020 01/25/2020 01/25/2020 7:45 PM CDT COVID-19 Under Investigation 01/12/2024 01/12/2024 01/12/2024 5:09 PM CDT documented as of this encounter Care Teams Stocklayer Relationship Specialty Start Date End Date Wong Kohler MD [address] [place] [address] PCP - General 10/15/18 documented as of this encounter
--- OUTSIDE RECORDS SUMMARY | 2024-08-28 13:12 | XMS_ITS | Continuity of Care Document ---
Author Organization [facility] Address [address] [place] [address] Phone Care Team Providers Care Care Companion Name Role Phone Elliot Hall MD, MD Unavailable Unavailable Allergies, Adverse Reactions, Alerts Substance Reaction Status Criticality No Known Drug Allergies Active No I nformation Medications Medication Instructions Dosage Effective Dates (start - stop) Status Comments methotrexate sodium 2.5 mg tablet - Active tamsulosin 0.4 mg capsule - Active triamcinolone acetonide 0.1 % topical cream - Active gabapentin 300 mg capsule - Active lisinopril 2.5 mg tablet - A ctive clopidogrel 75 mg tablet - A ctive carvedilol 6.25 mg tablet - Active oxybutynin chloride ER 10 mg tablet,extended release 24 hr - Active atorvastatin 80 mg tablet - Active bupropion HCl SR 150 mg tablet,12 hr sustained-release - Active omeprazole 40 mg capsule,delayed release - Active lorazepam 0.5 mg tablet - Ac tive gabapentin 100 mg capsule - Active folic acid 1 mg tablet - Active aspirin 81 mg tablet,delayed release - Active Simponi 50 mg/0.5 mL subcutaneous syringe - Active Procedures Procedure Date X-ray Exam Hip Unilat With Pelvis When P erformed Min 4 Views Office/outpatient visit,est, mod 2018 Office/outpatient visit,est, mod 2016 X-ray Exam Hip Unilat With Pelvis When P erformed Min 4 Views Office/outpatient visit,est, mod 2016 X-ray Exam Hip Unilat With Pelvis When P erformed Min 4 Views Global/Postop followup visit Office/outpatient visit,est, mod 2016 MRI lwr extrm joint, w/o contrast X-ray Exam Hip Unilat With Pelvis When P erformed Min 4 Views X-ray exam knee, 3 views Office/outpatient visit,est, mod 2016 [facility] Hinged Knee Sleeve Breg Total Hip Replacement Office/outpatient visit,new, mod 2016 X-ray Exam Max Hips With Pelvis Min 5 Vi ews Advance Directives Directive Yes / No Effective Date File Name No Information Encounters Encounter Description Practice Location Reason(s) For Visit Diagnoses Date Provider Providers Copied on Encounter Office/outpa tient visit,est, [facility], [facility] [address], [id number], [place] tel:[phone] [facility] Dislocated Hip (chief complaint) Presence of right artificial hip jointDislocated right hip, initial encounter 0 9 Rafael Zarate. [address] [place] [address], [id number] , [place]. tel: [phone] Referring Provider: Elliot Hall MD S, [address], [address] . tel:[phone] Office[facility]pa [facility]ient visit,[facility], [address] [place] [address], [id number], [place] tel:[phone] [facility] r hip (chief complaint) Presence of right artificial hip joint 7 Rafael Zarate. [address] [place] [address], [id number] , [place]. tel:[phone] Referring Provider: Elliot Aceves, [address] [facility] [address] [facility], [place], [address] . tel:[phone] Office/outpa tient visit,est, [facility], [address] [facility] [address], [place], [place], [id number], [place] tel:[phone] [facility] r hip (chief complaint) Presence of right artificial hip joint Rafael Zarate. [address] [facility] [address], [place], [place], [id number] , [place]. tel:[phone] Referring Provider: Elliot Aceves, [address] [place] [address], [place], [address] . tel:[phone] [facility], [address] [place] [address], [place], [place], [id number], [place] tel:[phone] [facility] r hip (chief complaint) Presence of right artificial hip joint Rafael Zarate. [address] [facility], [place] [address], [place], [place], [id number] , [place]. tel:[phone] Referring Provider: Elliot Aceves, [address] [place] [address], [place], [address] . tel:[phone] Office/outpa tient visit,est, [facility], [address] [place] [address], [place], [place], [id number], [place] tel:[phone] [facility] right hip (chief complaint)r ight knee (chief complaint) Unilateral primary osteoarthritis, right hip Rafael Zarate. [address] [place] [address], [place] [address], [place], [place], [id number] , [place]. tel:[phone] Referring Provider: Elliot Aceves, [address] [facility] [address] [facility], [place], [address] . tel:[phone] [facility], [address] [place] [address], [place], [place], [id number], [place] [phone] [facility] Unilateral primary osteoarthritis, right hip July- 8 7 [facility]. [address] [facility], [place], [place], [id number] , [place]. tel:[phone] Referring Provider: Elliot Aceves, [address] [facility] [address], [place], [address] . tel:[phone] Office/outpa tient visit,est, mod [facility], [address] [facility] [address], [place], [place], [id number], [place] [phone] [facility] r hip (chief complaint)r knee (chief complaint) Pain in right kneePresence of right artificial hip joint May-0 4 7 Rafael Zarate. [address] [facility], [place], [place], [id number] , [place]. tel:[phone] Referring Provider: Elliot Aceves, [address] [facility] [address], [place], [address] . tel:[phone] [facility], [address] [facility] [address], [place], [place], [id number], [place] [phone] [facility] Presence of right artificial knee joint Apr-2 0-201 7 Rafael Zarate. [address] [place] [address], [address], [place], [place], [id number] , [place]. tel:[phone] [facility], [address] [facility] [address], [place], [place], [id number], [place] [phone] [facility] Unilateral primary osteoarthritis, right hip Apr-1 0-201 7 Raafel Zarate. [address] [facility] [facility], [place], [place], [id number] , [place]. tel:[phone] Referring Provider: Elliot Aceves, [address] [facility] [address], [place], [address] . tel:[phone] [facility], [address] [place] [address], [id number], tel:[phone] [facility] Unilateral primary osteoarthritis, right hip Feb-2 7 Rafael Zarate. [address] [place] [address], [place] [address], [place], [place], [id number] , [place]. tel: [phone] Office/outpa tient visit,new, [facility], [address] [place] [address], [place], [place], [id number], tel:[phone] [facility] bilat hips (chief complaint) Pain in right hipPain in left hipUnilateral primary osteoarthritis, right hipUnilateral primary osteoarthritis, left hip b-2 Rafael Zarate. [address] [place] [address], [place], [place], [id number] , [place]. tel: [phone] Referring Provider: Elliot Hall MD S, [address] [place] [address], [place], [address] . tel:[phone] Family History Family Member Type Diagnosis Age At Onset Father Problem (finding) stroke Payers Payer name Insurance type Covered alliance party ID Authoriza tion(s) [place] Part B [id number] [facility] [id number] Social History Type Description Quantity Date Captured Comments Alcohol Use Details Unknown Caffeine Use Details Unknown Tobacco Use Status Very heavy cigarette smoker (40+ cigs/day) Smoking Status Current every day smoker Non-Smoking Tobacco Use Details : No Details Available : No Details Available Sex Male Vital Signs Date / Time: Height Weight BMI Pulse Rate Blood Pressure Temperature Respiratory Rate Body Surface Area Head Circumference Head Circ. Percentile Wt./Valentin. Percentile BMI percentile Pulse Ox Inhaled Ox 10:53 AM 70.00 in 90.718 kg (200.00 lbs) 28.7 0 kg/m eter (2) 2.12 meter(2) Chief Complaint And Reason For Visit From encounter dated '08/23/2018 10:20'. Dislocated Hip (chief complaint). Description: patient presents to the office today for evaluation of right hip Reason For Referral Reason For Referral No Information Plan Of Treatment Date Type Action Status Referral Ordered: X-ray exam knee, 3 views RT knee ordered Referral Ordered: MRI lower extrm joint, w/o contrast RT knee Appointment date/timeframe: 08/11/2016 ordered Referral Ordered: X-ray Exam Max Hips With Pelvis Min 5 Views Bilateral hip ordered History Of Present Illness Encounter Date Complaint History Of Prese nt Illness Dislocated Hip patient presents to the office today for evaluation of right hip r hip patient presents to the office today for follow up r olga. r hip patient presents to the office today for follow up right hip r hip patient presents to the office today follow up r olga right hip Pt comes in for right hip and knee pain right knee r hip patient presents to the office for follow up right hip dislocation and right knee pain r knee bilat hips patient presents to the office today for bilat hip pain Functional Status Date Functional Assessmen t No Information Instructions Date Instruction Additional Infor mation No Information Assessments Type Assessment Date assessment Presence of right artificial hip joint assessment Dislocated right hip, initial en counter Patient Care Teams Name Effective Dates (start - stop) Status Members No Information
== END 2024-08-28 13:08 | disposition home or self-care (01) ==
PROVIDERS: PCP Family Medicine; Visit Provider Physician Assistant
DX: R91.1 Solitary pulmonary nodule (principal); J43.9 Emphysema, unspecified
CPT/HCPCS: 71250